=== PATIENT | female | born 1940 | race Hispanic/Latino ===

== ENCOUNTER 2019-01-07 17:16 | Emergency (ER) | payer OTHER ==
--- OUTSIDE RECORDS SUMMARY | 2019-01-07 17:17 | XMS REPORT ---
:1940 Author Organization eClinicalWorks Care Team Providers Name Role Phone Perez, Na Provider Role Unavailable Allergies, Adverse Reactions, Alerts Substance Reaction Event Type N.K.D.A. Info Not Available Non Drug Allergy Problems Problem Type Condition Code Onset Dates Condition Status Assessment HTN (hypertension) I10 Active Problem CHF (congestive heart failure) I50.9 Active Problem Obesity, unspecified E66.9 Active Problem Osteoarthritis, multiple sites M15.9 Active Problem Unsteady gait R26.81 Active Problem Hyperlipidemia E78.5 Active Problem HTN (hypertension) I10 Active Problem Gastroesophageal reflux disease K21.9 Active without esophagitis Problem Cardiac disease I51.9 Active Assessment Unsteady gait R26.81 Active Assessment Gastroesophageal reflux disease K21.9 Active without esophagitis Assessment Osteoarthritis, multiple sites M15.9 Active Assessment Microalbuminuria R80.9 Active Assessment CHF (congestive heart failure) I50.9 Active Assessment Renal insufficiency N28.9 Active Assessment Hyperlipidemia E78.5 Active Medications Medication Code Code Instructions Start End Status Dosage System Date Date [facility] 95814930892 81 MG Orally Active 1 tablet Once a day Tramadol HCl ND 59579501081 50 MG Orally Jan 13Jan Active 1 tablet as every 12 hrs 2017 28, needed 2017 Nitroglycerin [facility] 05031422316 0.4 MG Active not defined Sublingual Losartan [facility] 38694868654 100 MG Orally Active 1 tablet Potassium Once a day Diclofenac [facility] 08571974676 1 % Transdermal October 10, Active as directed Sodium twice a day 2018 Lyrica ND 24714114580 100 MG Orally Active 1 capsule Two times a day Simvastatin ND 24989100435 40 MG Orally Active 1 tablet in Once a day the evening Prilosec [facility] 28930045350 40 MG Orally Active 1 capsule Once a day Results No Known Results Summary Purpose eClinicalWorks Submission
--- OUTSIDE RECORDS SUMMARY | 2019-01-07 17:18 | XMS REPORT ---
:1940 Author Organization eClinicalWorks Care Team Providers Name Role Phone Perez, Na Provider Role Unavailable Allergies No Known Allergies Problems Problem Type Condition Code Onset Dates Condition Status Problem Hyperlipidemia E78.5 Active Problem Gastroesophageal reflux disease K21.9 Active without esophagitis Problem Cardiac disease I51.9 Active Problem CHF (congestive heart failure) I50.9 Active Problem HTN (hypertension) I10 Active Problem Stable angina I20.8 Active Problem BMI 30.0-30.9,adult Z68.30 Active Problem Constipation, unspecified K59.00 Active constipation type Problem Obesity, unspecified E66.9 Active Problem Osteoarthritis, multiple sites M15.9 Active Problem Allergic rhinitis due to pollen, J30.1 Active unspecified seasonality Problem Unsteady gait R26.81 Active Medications Medication Code Code Instructions Start End Status Dosage System Date Date Diclofenac [facility] 97222117766 3 % Transdermal November 02, Jan 01, Active 2 gram Sodium Twice a day 2018 2018 application to affected area Results No Known Results Summary Purpose eClinicalWorks Submission
--- OUTSIDE RECORDS SUMMARY | 2019-01-07 17:18 | XMS REPORT ---
[...] Start End Status Dosage System Date Date Lyrica [facility] 31004478461 100 MG Orally Active 1 capsule Two times a day Simvastatin ND 43916231969 40 MG Orally Active 1 tablet in Once a day the evening - [facility] 47519390715 81 MG Orally Active 1 tablet Once a day Carvedilol ND 89462078499 12.5 MG Orally Apr 15, Active as directed twice a day 2018 Nitroglycerin [facility] 86477065019 0.4 MG Active not defined Sublingual Losartan ND 27447481097 100 MG Orally Active 1 tablet Potassium Once a day Prilosec [facility] 37788653732 40 MG Orally Active 1 capsule Once a day Diclofenac [facility] 01338767041 1 % Transdermal Active as directed Sodium twice a day Tramadol HCl ND 48117234509 50 MG Orally Apr 15, Active 1 tablet as every 6 hrs 2018 needed Results No Known Results Summary Purpose eClinicalWorks Submission
--- OUTSIDE RECORDS SUMMARY | 2019-01-07 17:18 | XMS REPORT ---
:1940 Author Organization eClinicalWorks Care Team Providers Name Role Phone Perez, Na Provider Role Unavailable Allergies, Adverse Reactions, Alerts Substance Reaction Event Type N.K.D.A. Info Not Available Non Drug Allergy Problems Problem Type Condition Code Onset Dates Condition Status Problem CHF (congestive heart failure) I50.9 Active Problem Hyperlipidemia E78.5 Active Problem HTN (hypertension) I10 Active Problem Allergic rhinitis due to pollen, J30.1 Active unspecified seasonality Assessment Prediabetes R73.03 Active Problem Unsteady gait R26.81 Active Assessment Screening for diabetes mellitus Z13.1 Active Assessment BMI 30.0-30.9,adult Z68.30 Active Problem BMI 30.0-30.9,adult Z68.30 Active Problem Gastroesophageal reflux disease K21.9 Active without esophagitis Problem Cardiac disease I51.9 Active Problem Obesity, unspecified E66.9 Active Problem Osteoarthritis, multiple sites M15.9 Active Assessment Microalbuminuria R80.9 Active Assessment Gastroesophageal reflux disease K21.9 Active without esophagitis Assessment Allergic rhinitis due to pollen, J30.1 Active unspecified seasonality Assessment Unsteady gait R26.81 Active Assessment Hyperlipidemia E78.5 Active Assessment HTN (hypertension) I10 Active Assessment Osteoarthritis, multiple sites M15.9 Active Assessment Medicare annual wellness visit, Z00.00 Active subsequent Assessment CHF (congestive heart failure) I50.9 Active Medications Medication Code Code Instructions Start End Status Dosage System Date Date Prilosec [facility] 59406819284 40 Orally Once Active 1 capsule a day Prilosec [facility] 20389649419 40 MG Orally Active 1 capsule Once a day Nitroglycerin [facility] 27090484356 0.4 MG Active not defined Sublingual Loratadine [facility] 60457709525 10 MG Orally August Active 1 tablet Once a day 2018 Lyrica ND 11728354325 100 MG Orally Active 1 capsule Two times a day Losartan [facility] 95857461646 100 MG Orally Active 1 tablet Potassium Once a day Simvastatin [facility] 63208222856 40 MG Orally Active 1 tablet in Once a day the evening Tramadol HCl [facility] 00588219324 50 MG Orally Apr 15, Active 1 tablet as every 6 hrs 2017 needed Carvedilol [facility] 08966246132 12.5 MG Orally Apr 15, Active as directed twice a day 2017 Flonase [facility] 76363076399 50 MCG/ACT August Active 2 spray in Nasally Once a 2018 each day nostril Diclofenac [facility] 81653533420 1 % Transdermal Active as directed Sodium twice a day Aspir-81 [facility] 69268881180 81 MG Orally Active 1 tablet Once a day Results No Known Results Summary Purpose eClinicalWorks Submission
--- OUTSIDE RECORDS SUMMARY | 2019-01-07 17:18 | XMS REPORT ---
[...] esophagitis Problem Cardiac disease I51.9 Active Problem Stable angina I20.8 Active Assessment Renal insufficiency N28.9 Active Problem BMI 30.0-30.9,adult Z68.30 Active Assessment Microalbuminuria R80.9 Active Assessment Unsteady gait R26.81 Active Problem Constipation, unspecified K59.00 Active constipation type Problem Obesity, unspecified E66.9 Active Problem Osteoarthritis, multiple sites M15.9 Active Problem Allergic rhinitis due to pollen, J30.1 Active unspecified seasonality Problem Unsteady gait R26.81 Active Assessment Osteoarthritis, multiple sites M15.9 Active Assessment Stable angina I20.8 Active Assessment Gastroesophageal reflux disease K21.9 Active without esophagitis Assessment Constipation, unspecified K59.00 Active constipation type Assessment HTN (hypertension) I10 Active Assessment CHF (congestive heart failure) I50.9 Active Problem CHF (congestive heart failure) I50.9 Active Assessment Hyperlipidemia E78.5 Active Problem HTN (hypertension) I10 Active Medications Medication Code Code Instructions Start End Status Dosage System Date Date Lyrica [facility] 01685571253 100 MG Orally Active 1 capsule Two times a day Diclofenac [facility] 54470697692 1 % Transdermal Active as directed Sodium twice a day Nitroglycerin ND 62023659341 0.4 MG Active not defined Sublingual Amitiza [facility] 17597079265 24 MCG Orally November 02Jan Active 1 capsule Twice a day 2018 16, with food 2018 Carvedilol ND 14010140256 12.5 MG Orally Apr 15, Active as directed twice a day 2017 Prilosec [facility] 60473413253 40 MG Orally Active 1 capsule Once a day Simvastatin ND 10944014235 40 MG Orally Active 1 tablet in Once a day the evening Nitrostat [facility] 81668657218 0.4 MG November 02, Active 1 tablet Sublingual as 2018 needed once a day for angina Aspir-81 [facility] 92764403233 81 MG Orally Active 1 tablet Once a day Tramadol HCl [facility] 86371048316 50 MG Orally Apr 15, Active 1 tablet as every 6 hrs 2017 needed Prilosec [facility] 65726479899 40 Orally Once Active 1 capsule a day Loratadine [facility] 05761012833 10 MG Orally August Active 1 tablet Once a day 2018 Flonase [facility] 64207442455 50 MCG/ACT August Active 2 spray in Nasally Once a 2018 each day nostril Ranitidine HCl [facility] 34218701183 150 MG Orally November 02, Active 1 tablet as Twice a day 2018 needed Losartan [facility] 44223623286 100 MG Orally Active 1 tablet Potassium Once a day Results No Known Results Summary Purpose eClinicalWorks Submission
--- OUTSIDE RECORDS SUMMARY | 2019-01-07 17:18 | XMS REPORT ---
[...] seasonality Problem Unsteady gait R26.81 Active Medications No Known Medications Results No Known Results Summary Purpose eClinicalWorks Submission
[2019-01-07] MEDS ORDERED: LIDOCAINE 1% 20 ML MDV ONE (17:37)
[2019-01-07] MEDS ORDERED: LIDOCAINE 2% W/EPI 1:200,000 MPF 20 ML VIAL IM ONE (17:38)
[2019-01-07] MEDS ORDERED: LIDOCAINE 1% W/EPI 1:100,000 MDV 20 ML VIAL IV ONE (18:00)
[2019-01-07] MEDS ORDERED: CEPHALEXIN 250 MG CAP ONE (18:06)
--- NOTE | 2019-01-07 18:13 | ER ---
Nurse's Notes [facility] Name: Gale Waters Age: 78 yrs Sex: Female : 1940 Arrival Date: 01/07/2019 Time: 17:20 Bed 23 Private MD: Diagnosis: Fall due to bumping against object;Laceration without foreign body of other part of head-scalp Presentation: 01/07 17:20 Transition of care: patient was not received from another setting of care. Onset of ss symptoms was January 07, 2019. Risk Assessment: Do you want to hurt yourself or someone else? Patient reports no desire to harm self or others. Initial Sepsis Screen: Does the patient meet any 2 criteria? No. Patient's initial sepsis screen is negative. Does the patient have a suspected source of infection? No. Patient's initial sepsis screen is negative. 17:23 Presenting complaint: EMS states: laceration sustained to back of head after shower ss chair gave out from under patient 30 minutes ago. EMS noted bleeding laceration and applied pressure dressing. Bleeding controlled at this time. Care prior to arrival: Pressure dressing applied to head. Mechanism of Injury: Fall sitting position. Trauma event details: Injury occurred in the [facility], Injury occurred: at home. Injury occurred: January 07, 2019. 17:23 Acuity: ADÁN 2 17:23 Method Of Arrival: EMS: [facility] Triage Assessment: 18:15 General: Appears. mg2 19:13 General: Behavior is calm, cooperative. mg2 Trauma Activation: Alert Physician: ED Physician; Name: ; Notified At: ; Arrived At: Physician: General Surgeon; Name: ; Notified At: ; Arrived At: Physician: Radiology; Name: ; Notified At: ; Arrived At: Physician: Respiratory; Name: ; Notified At: ; Arrived At: Physician: Lab; Name: ; Notified At: ; Arrived At: Historical: - Allergies: 17:32 No Known Allergies; ss - Home Meds: 18:14 carvedilol 12.5 mg oral tab [Active]; omeprazole 40 mg Oral cpDR [Active]; losartan 100 mg2 mg oral tab 1 tab once daily [Active]; aspirin 81 mg Oral TbEC 1 tab once daily [Active]; ranitidine HCl 150 mg Oral cap [Active]; simvastatin 40 mg Oral tab [Active]; Lyrica Oral [Active]; Amitiza 24 mcg oral cap [Active]; - PMHx: 17:32 High Cholesterol; Hypertension; Myocardial infarction; ss - PSHx: 17:32 Heart stents; ss - Immunization history:: Adult Immunizations up to date, Last tetanus immunization: unknown. - Social history:: Smoking status: Patient/guardian denies using tobacco. - Ebola Screening: : Patient denies exposure to infectious person Patient denies travel to an Ebola-affected area in the 21 days before illness onset. Screenin:20 Abuse screen: Denies threats or abuse. Denies injuries from another. Tuberculosis ss screening: Never had TB. 18:11 Nutritional screening: No deficits noted. Fall Risk Fall in past 12 months (25 points). mg2 IV access (20 points). Primary Survey: 17:14 NO uncontrolled hemorrhage observed. A: The patient is alert. Airway: patent, No ss supplemental oxygen in use on arrival. Oral cavity: clear, Trachea midline. Breathing/Chest: Respiratory pattern: regular, Respiratory effort: spontaneous, unlabored, Breath sounds: clear, bilaterally. Circulation: Pulses: palpable right radial artery, right posterior tibial artery, left radial artery and left posterior tibial artery. Skin color: pink, Skin temperature: warm. Disability Alert. Exposure/Environment: There is no evidence of uncontrolled external bleeding. Obvious injury(ies) are noted at this time: laceration to back of head. Bleeding controlled by pressure dressing placed by EMS prior to arrival. Patient is awake, alert and smiling during triage. 18:30 Reassessment Airway Airway Patent Breathing/Chest Respiratory pattern Regular mg2 Respiratory effort Spontaneous Unlabored Circulation Color [place] Disability Alert. Secondary Survey: 18:10 HEENT: Head Other laceration in the scalp. Gastrointestinal: No deficits noted. : No mg2 deficits noted. Musculoskeletal: Circulation, motion, and sensation intact. Capillary refill < 3 seconds. Injury Description: Laceration sustained to scalp is clean, 2.6 to 7.5 cm long, bleeding moderately. Assessment: 18:08 Pain: Complains of pain in scalp Pain does not radiate. Pain currently is 2 out of 10 mg2 on a pain scale. Quality of pain is described as aching, Pain began suddenly, Is intermittent. Neuro: Level of Consciousness is awake, alert, obeys commands, Oriented to person, place, time, situation. EENT: No signs and/or symptoms were reported regarding the EENT system. Cardiovascular: Capillary refill < 3 seconds Patient's skin is warm and dry. Respiratory: Airway is patent Respiratory effort is even, unlabored, Respiratory pattern is regular, symmetrical. GI: No signs and/or symptoms were reported involving the gastrointestinal system. : No signs and/or symptoms were reported regarding the genitourinary system. Derm: Skin is pink, warm \T\ dry. normal, Wound noted scalp. Musculoskeletal: Circulation, motion, and sensation intact. Capillary refill < 3 seconds. Injury Description: Laceration sustained to scalp is clean, 2.6 to 7.5 cm long, bleeding moderately, was sustained 1-2 hours ago. moderate bleeding noted at this time. 18:31 Reassessment: patient up for discharge once ct report comes back normal . mg2 Vital Signs: 17:20 Pulse 89; Resp 16; Temp 99.0(O); Pulse Ox 98% on R/A; Weight 68.04 kg; Height 4 ft. 11 ss in. (149.86 cm); Pain 10/10; 18:28 BP 174 / 71; Pulse 78; Resp 18; Pulse Ox 100% on R/A; mg2 18:58 BP 119 / 57; Pulse 73; Resp 18; Temp 98; Pulse Ox 99% on R/A; mg2 17:20 Body Mass Index 30.30 (68.04 kg, 149.86 cm) ss [place] Coma Score: 17:20 Eye Response: spontaneous(4). Verbal Response: oriented(5). Motor Response: obeys ss commands(6). Total: 15. 19:12 Eye Response: spontaneous(4). Verbal Response: oriented(5). Motor Response: obeys mg2 commands(6). Total: 15. Trauma Score (Adult): 17:20 Eye Response: spontaneous(1); Verbal Response: oriented(1); Motor Response: obeys ss commands(2); Systolic BP: > 89 mm Hg(4); Respiratory Rate: 10 to 29 per min(4); [place] Score: 15; Trauma Score: 12 19:12 Eye Response: spontaneous(1); Verbal Response: oriented(1); Motor Response: obeys mg2 commands(2); Systolic BP: > 89 mm Hg(4); Respiratory Rate: 10 to 29 per min(4); [place] Score: 15; Trauma Score: 12 ED Course: 17:20 Patient arrived in ED. 17:20 John Cary MD is Attending Physician. [facility] 17:20 Patient has correct armband on for positive identification. Placed in gown. Bed in low ss position. Call light in reach. Side rails up X 1. nurse monitoring on. Pulse ox on. NIBP on. 17:20 Patient maintains SpO2 saturation greater than 95% on room air. ss 17:28 Triage completed. ss 17:32 Arm band placed on right wrist. ss 17:33 Omega Hurtado, RAPHAEL is Primary Nurse. mg2 18:14 CT Head C Spine In Process Unspecified. EDMS 18:14 Wound care: to laceration located on scalp was irrigated with normal saline, Patient mg2 tolerated well. 5 stitches and [address] cary under local anesthesia. Thermoregulation: warm blanket given to patient. 18:15 Assist provider with laceration repair. Inserted saline lock: 20 gauge in right mg2 forearm, using aseptic technique. by RAPHAEL Garcia. 19:12 IV discontinued, intact, bleeding controlled, No redness/swelling at site. Pressure mg2 dressing applied. Administered Medications: 17:55 Drug: Lidocaine-Epinephrine -1%: (1:100,000) 10 ml {Note: given by the provider. .} mg2 Volume: 20 ml; Route: Infiltration; 17:55 Follow up: Response: No adverse reaction mg2 18:26 Drug: KeFLEX 500 mg Route: PO; mg2 18:27 Follow up: Response: No adverse reaction mg2 Intake: 18:11 PO: 0ml; Total: 0ml. mg2 Outcome: 18:09 Discharge ordered by . josy 19:13 Discharged to home via wheelchair, with family. mg2 19:13 Condition: stable 19:13 Discharge instructions given to patient, family, Instructed on discharge instructions, follow up and referral plans. medication usage, Demonstrated understanding of instructions, follow-up care, medications, wound care, Prescriptions given X 1. 19:13 Patient's length of stay was not longer than 2 hours. 19:18 Patient left the ED. mg2 Signatures: Dispatcher [employer] EDCA John Cary MD MD cha Smirch, Shelby, RN RN Omega Hurtado, RAPHAEL RN mg2 Corrections: (The following items were deleted from the chart) 18:29 18:14 Wound care: to laceration located on scalp was irrigated with normal saline, mg2 Patient tolerated well. sutured by Dr cary under local anesthesia. mg2
--- NOTE | 2019-01-07 18:14 | EDPHYS ---
Physician Documentation [facility] Name: Gale Waters Age: 78 yrs Sex: Female : 1940 Arrival Date: 01/07/2019 Time: 17:20 Bed 23 Private MD: ED Physician John Cary HPI: 01/07 18:03 This 78 yrs old Female presents to ER via EMS with complaints of Fall Injury, josy Laceration To Head. 18:03 Details of fall: The patient fell from an upright position, while standing, while josy walking. Onset: The symptoms/episode began/occurred just prior to arrival. Associated injuries: The patient sustained injury to the head. Severity of symptoms: At their worst the symptoms were mild, in the emergency department the symptoms are unchanged. The patient has not experienced similar symptoms in the past. Historical: - Allergies: 17:32 No Known Allergies; ss - Home Meds: 18:14 carvedilol 12.5 mg oral tab [Active]; omeprazole 40 mg Oral cpDR [Active]; losartan 100 mg2 mg oral tab 1 tab once daily [Active]; aspirin 81 mg Oral TbEC 1 tab once daily [Active]; ranitidine HCl 150 mg Oral cap [Active]; simvastatin 40 mg Oral tab [Active]; Lyrica Oral [Active]; Amitiza 24 mcg oral cap [Active]; - PMHx: 17:32 High Cholesterol; Hypertension; Myocardial infarction; ss - PSHx: 17:32 Heart stents; ss - Immunization history:: Adult Immunizations up to date, Last tetanus immunization: unknown. - Social history:: Smoking status: Patient/guardian denies using tobacco. - Ebola Screening: : Patient denies exposure to infectious person Patient denies travel to an Ebola-affected area in the 21 days before illness onset. ROS: 18:04 Constitutional: Negative for fever, chills, and weight loss, Eyes: Negative for injury, josy pain, redness, and discharge, ENT: Negative for injury, pain, and discharge, Neck: Negative for injury, pain, and swelling, Cardiovascular: Negative for chest pain, palpitations, and edema, Respiratory: Negative for shortness of breath, cough, wheezing, and pleuritic chest pain, Abdomen/GI: Negative for abdominal pain, nausea, vomiting, diarrhea, and constipation, Back: Negative for injury and pain, : Negative for injury, bleeding, discharge, and swelling, MS/Extremity: Negative for injury and deformity, Skin: Negative for injury, rash, and discoloration, Neuro: Negative for headache, weakness, numbness, tingling, and seizure, Psych: Negative for depression, anxiety, suicide ideation, homicidal ideation, and hallucinations, Allergy/Immunology: Negative for hives, rash, and allergies, Endocrine: Negative for neck swelling, polydipsia, polyuria, polyphagia, and marked weight changes, Hematologic/Lymphatic: Negative for swollen nodes, abnormal bleeding, and unusual bruising. Exam: 18:05 Constitutional: This is a well developed, well nourished patient who is awake, alert, josy and in no acute distress. Head/Face: Normocephalic, atraumatic. Eyes: Pupils equal round and reactive to light, extra-ocular motions intact. Lids and lashes normal. Conjunctiva and sclera are non-icteric and not injected. Cornea within normal limits. Periorbital areas with no swelling, redness, or edema. ENT: Nares patent. No nasal discharge, no septal abnormalities noted. Tympanic membranes are normal and external auditory canals are clear. Oropharynx with no redness, swelling, or masses, exudates, or evidence of obstruction, uvula midline. Mucous membranes moist. Neck: Trachea midline, no thyromegaly or masses palpated, and no cervical lymphadenopathy. Supple, full range of motion without nuchal rigidity, or vertebral point tenderness. No Meningismus. Chest/axilla: Normal chest wall appearance and motion. Nontender with no deformity. No lesions are appreciated. Cardiovascular: Regular rate and rhythm with a normal S1 and S2. No gallops, murmurs, or rubs. Normal PMI, no JVD. No pulse deficits. Respiratory: Lungs have equal breath sounds bilaterally, clear to auscultation and percussion. No rales, rhonchi or wheezes noted. No increased work of breathing, no retractions or nasal flaring. Abdomen/GI: Soft, non-tender, with normal bowel sounds. No distension or tympany. No guarding or rebound. No evidence of tenderness throughout. Back: No spinal tenderness. No costovertebral tenderness. Full range of motion. MS/ Extremity: Pulses equal, no cyanosis. Neurovascular intact. Full, normal range of motion. Neuro: Awake and alert, GCS 15, oriented to person, place, time, and situation. Cranial nerves II-XII grossly intact. Motor strength 5/5 in all extremities. Sensory grossly intact. Cerebellar exam normal. Normal gait. Psych: Awake, alert, with orientation to person, place and time. Behavior, mood, and affect are within normal limits. 18:05 Skin: injury, laceration(s), the wound is approximately 3.5 cm(s), with a depth of .25 cm(s), of the scalp. Vital Signs: 17:20 Pulse 89; Resp 16; Temp 99.0(O); Pulse Ox 98% on R/A; Weight 68.04 kg; Height 4 ft. 11 ss in. (149.86 cm); Pain 10/10; 18:28 BP 174 / 71; Pulse 78; Resp 18; Pulse Ox 100% on R/A; mg2 18:58 BP 119 / 57; Pulse 73; Resp 18; Temp 98; Pulse Ox 99% on R/A; mg2 17:20 Body Mass Index 30.30 (68.04 kg, 149.86 cm) ss Nely Coma Score: 17:20 Eye Response: spontaneous(4). Verbal Response: oriented(5). Motor Response: obeys ss commands(6). Total: 15. 19:12 Eye Response: spontaneous(4). Verbal Response: oriented(5). Motor Response: obeys mg2 commands(6). Total: 15. Trauma Score (Adult): 17:20 Eye Response: spontaneous(1); Verbal Response: oriented(1); Motor Response: obeys ss commands(2); Systolic BP: > 89 mm Hg(4); Respiratory Rate: 10 to 29 per min(4); Nely Score: 15; Trauma Score: 12 19:12 Eye Response: spontaneous(1); Verbal Response: oriented(1); Motor Response: obeys mg2 commands(2); Systolic BP: > 89 mm Hg(4); Respiratory Rate: 10 to 29 per min(4); Nely Score: 15; Trauma Score: 12 Laceration: 18:05 Wound Repair of 3.5cm ( 1.4in ) subcutaneous laceration to scalp. Linear shaped.. josy Minimal bleeding noted.. Distal neuro/vascular/tendon intact. Anesthesia: Local anesthetic administered with 10 mls of 2% lidocaine. Wound prep: Moderate cleansing by me, Wound explored. Skin closed with 5 3-0 Prolene using interrupted sutures and sterile technique. Dressed with pressure dressing, non-adherent dressing. Patient tolerated well. MDM: 17:20 Patient medically screened. [facility] 18:07 Data reviewed: vital signs, nurses notes, radiologic studies, CT scan. [facility] 01/07 17:22 Order name: CT Head C Spine 01/07 17:30 Order name: Dressing - Wound; Complete Time: 17:33 [facility] 01/07 17:30 Order name: Gloves, Sterile; Complete Time: 17:33 [facility] 01/07 17:30 Order name: Setup Suture Tray; Complete Time: 17:33 [facility] Administered Medications: 17:55 Drug: Lidocaine-Epinephrine -1%: (1:100,000) 10 ml {Note: given by the provider. .} mg2 Volume: 20 ml; Route: Infiltration; 17:55 Follow up: Response: No adverse reaction mg2 18:26 Drug: KeFLEX 500 mg Route: PO; mg2 18:27 Follow up: Response: No adverse reaction mg2 Disposition: 01/07/19 18:09 Discharged to Home. Impression: Fall due to bumping against object, Laceration without foreign body of other part of head - scalp. - Condition is Stable. - Discharge Instructions: Head Injury, Adult, Facial Laceration, Facial Laceration, [id number], Head Injury, Adult, [id number]. - Prescriptions for Keflex 500 mg Oral Capsule - take 1 capsule by ORAL route every 6 hours for 7 days; 28 capsule. - Medication Reconciliation Form, Thank You Letter, Antibiotic Education, Prescription Opioid Use form. - Follow up: Private Physician; When: 2 - 3 days; Reason: Recheck today's complaints, Continuance of care, Re-evaluation by your physician. - Problem is new. - Symptoms have improved. Signatures: Dispatcher [employer] EDMS John Cary MD MD cha Smirch, Shelby, RN RN Omega Hurtado RN RN mg2 Corrections: (The following items were deleted from the chart) 19:18 18:09 01/07/2019 18:09 Discharged to Home. Impression: Fall due to bumping against mg2 object; Laceration without foreign body of other part of head - scalp. Condition is Stable. Forms are Medication Reconciliation Form, Thank You Letter, Antibiotic Education, Prescription Opioid Use. Follow up: Private Physician; When: 2 - 3 days; Reason: Recheck today's complaints, Continuance of care, Re-evaluation by your physician. Problem is new. Symptoms have improved. josy
--- NOTE | 2019-01-07 18:39 | RAD REPORT ---
EXAM DESCRIPTION: CT - [id number] - 01/07/2019 6:12 pm CLINICAL HISTORY: Fall, head and neck injury COMPARISON: CT trauma study July 2015. TECHNIQUE: Axial 5 mm thick images of the head were obtained. Axial 2 mm thick images of the cervic al spine were obtained with sagittal and coronal reconstruction images generated and reviewed. All CT scans are performed using dose optimization technique as appropriate and may include automated exposure control or mA/KV adjustment according to patient size. FINDINGS: No intracranial hemorrhage, mass, edema or acute intracranial finding. No acute cortical b ased infarction. No cortical edema or sulcal effacement. No significant atrophy or chronic ischemic c hange. No extra-axial fluid collections. Mastoid air cells and paranasal sinuses are clear. No globe or orbit abnormality seen. Small right parietal scalp hematoma. Skin jae are in place from lacera tion repair. No foreign body. Cervical body height and alignment are normal. Mild C6-7 disc space narrowing present. Facet joint de generative change present at multiple levels. Left foraminal encroachment C3-4 with bilateral foramin al encroachment at C4-5. No fracture or acute bony abnormality. Central canal detail is inherently li mited. No paraspinal mass or hematoma. IMPRESSION: No hemorrhage, edema or acute intracranial finding. Small scalp hematoma associated with the right parietal scalp laceration. No foreign body. Cervical spine degenerative change with no acute finding.
== END 2019-01-07 19:18 | disposition home or self-care (01) ==
LOC: ER 17:16
PROC: 0JQ00ZZ Repair Scalp Subcutaneous Tissue and Fascia, Open Approach (ICD-10-PCS; principal; 2019-01-07)
DX: S01.81XA Laceration without foreign body of other part of head, initial encounter (principal); W17.89XA Other fall from one level to another, initial encounter; Y93.9 Activity, unspecified; Y92.002 Bathroom of unspecified non-institutional (private) residence as the place of occurrence of the external cause
CPT/HCPCS: 70450; 72125; 99285

== ENCOUNTER 2019-06-23 03:22 | Emergency (ER) | payer OTHER ==
--- OUTSIDE RECORDS SUMMARY | 2019-06-23 03:25 | XMS REPORT ---
:1940 Author Organization [employer] Care Team Providers Name Role Phone Perez, Na Provider Role Unavailable Allergies No Known Allergies Problems Problem Type Condition Code Onset Dates Condition Status Problem Hyperlipidemia E78.5 Active Problem Gastroesophageal reflux disease K21.9 Active without esophagitis Problem Cardiac disease I51.9 Active Problem Stable angina I20.8 Active Problem BMI 30.0-30.9,adult Z68.30 Active Problem Constipation, unspecified K59.00 Active constipation type Problem Obesity, unspecified E66.9 Active Problem Osteoarthritis, multiple sites M15.9 Active Problem Allergic rhinitis due to pollen, J30.1 Active unspecified seasonality Problem Unsteady gait R26.81 Active Assessment CHF (congestive heart failure) I50.9 Active Problem CHF (congestive heart failure) I50.9 Active Assessment HTN (hypertension) I10 Active Problem HTN (hypertension) I10 Active Medications No Known Medications Results No Known Results Summary Purpose [employer] Submission
--- OUTSIDE RECORDS SUMMARY | 2019-06-23 03:25 | XMS REPORT ---
[...] seasonality Problem Unsteady gait R26.81 Active Assessment Allergic rhinitis due to pollen, J30.1 Active unspecified seasonality Assessment Gastroesophageal reflux disease K21.9 Active without esophagitis Assessment Osteoarthritis, multiple sites M15.9 Active Assessment Hyperlipidemia E78.5 Active Problem CHF (congestive heart failure) I50.9 Active Assessment HTN (hypertension) I10 Active Problem HTN (hypertension) I10 Active Medications Medication Code Code Instructions Start End Date Status Dosage System Date Losartan [facility] 18631810548 100 MG Orally Active 1 tablet Potassium Once a day Diclofenac [facility] 66723013247 1 % Transdermal July Active as directed Sodium twice a day [address] [facility] 19351859458 50 MCG/ACT August Active 2 spray in Nasally Once a 2018 each day nostril Prilosec [facility] 89676578424 40 MG Orally Active 1 capsule Once a day Carvedilol ND 10809379675 12.5 MG Orally Active as directed twice a day Lyrica ND 70995521666 100 MG Orally Active 1 capsule Two times a day Ranitidine HCl [facility] 49129976506 150 MG Orally Active 1 tablet as Once a day at needed bedtime Amitiza [facility] 54767073701 24 MCG Orally July Active 1 capsule Twice a day 2019 with food Simvastatin ND 80269497567 40 MG Orally Active 1 tablet in Once a day the evening Results No Known Results Summary Purpose [employer]ClinicalWorks Submission
--- OUTSIDE RECORDS SUMMARY | 2019-06-23 03:25 | XMS REPORT ---
[...] seasonality Problem Unsteady gait R26.81 Active Assessment Hyperlipidemia E78.5 Active Assessment HTN (hypertension) I10 Active Assessment Gastroesophageal reflux disease K21.9 Active without esophagitis Problem CHF (congestive heart failure) I50.9 Active Assessment CHF (congestive heart failure) I50.9 Active Problem HTN (hypertension) I10 Active Medications No Known Medications Results No Known Results Summary Purpose [employer]ClinicalWorks Submission
--- OUTSIDE RECORDS SUMMARY | 2019-06-23 03:25 | XMS REPORT ---
[...] seasonality Problem Unsteady gait R26.81 Active Assessment Stable angina I20.8 Active Assessment Osteoarthritis, multiple sites M15.9 Active Assessment Gastroesophageal reflux disease K21.9 Active without esophagitis Assessment Constipation, unspecified K59.00 Active constipation type Assessment HTN (hypertension) I10 Active Assessment CHF (congestive heart failure) I50.9 Active Problem CHF (congestive heart failure) I50.9 Active Assessment Hyperlipidemia E78.5 Active Problem HTN (hypertension) I10 Active Medications Medication Code Code Instructions Start End Date Status Dosage System Date Prilosec [facility] 25040598798 40 MG Orally Active 1 capsule Once a day Nitroglycerin [facility] 54286415328 0.4 MG Active not Sublingual defined Amitiza [facility] 25191088524 24 MCG Orally May 25, November 20, Active 1 capsule Twice a day 2019 2019 with food and water Lyrica [facility] 06909751838 100 MG Orally Active 1 capsule Two times a day Nitrostat [facility] 54605836334 0.4 MG Active 1 tablet Sublingual as needed once a day for angina Carvedilol [facility] 62293465894 12.5 MG Orally Active as twice a day directed Flonase NDC 54773833208 50 MCG/ACT August Active 2 spray in Nasally Once a 2018 each day nostril Amitiza [facility] 95862293285 24 MCG Orally July Active 1 capsule Twice a day 2019 with food Prilosec [facility] 67164184987 40 Orally Once Active 1 capsule a day Tramadol HCl [facility] 61975382385 50 MG Orally Apr 15, Active 1 tablet every 6 hrs 2017 as needed Diclofenac [facility] 67461093064 3 % Externally Feb 18, Active as Sodium twice a day 2019 directed Simvastatin [facility] 18039298941 40 MG Orally Active 1 tablet Once a day in the evening Losartan [facility] 24792609170 100 MG Orally Active 1 tablet Potassium Once a day Aspir-81 [facility] 04983817320 81 MG Orally Active 1 tablet Once a day Ranitidine HCl [facility] 30318163703 150 MG Orally Active 1 tablet Once a day at as needed bedtime Results No Known Results Summary Purpose [employer]ClinicalWorks Submission
[2019-06-23] MEDS ORDERED: LIDOCAINE 1% MPF 5 ML VIAL ONE (03:59)
[2019-06-23] MEDS ORDERED: ACETAMINOPHEN 500 MG TAB ONE (04:15)
[2019-06-23] MEDS ORDERED: TETANUS & DIPHTHERIA TOX,ADULT 0.5 ML VIAL ONE (04:22)
--- NOTE | 2019-06-23 09:51 | RAD REPORT ---
EXAM DESCRIPTION: CT - Head Brain Wo Cont - 06/23/2019 6:09 am CLINICAL HISTORY: FALL COMPARISON: None. TECHNIQUE: Axial unenhanced CT imaging of the brain. Reformatted coronal and sagittal images obtaine d. This examination was performed according to our departmental dose optimization program, which include s automated exposure control, adjustment of the mA and/or kV according to patient size and/or use of iterative reconstruction technique. FINDINGS: There is bilateral anterior frontal scalp edema, right greater than left, compatible with small soft tissue hematomas. There is no acute fracture within the imaged facial bones, calvarium, or skull base. There is mucosal thickening within the ethmoid air cells. Mastoid air cells are clear bi laterally There is no intraparenchymal or extra-axial hemorrhage. No mass or midline shift. No edema. There is slight decreased white matter attenuation due to chronic vascular ischemic change. Normal cerebellum and vermis. Fourth ventricle is midline. Prepontine cisterns are not effaced. Yadira l sella contents. IMPRESSION: 1. Anterior bifrontal scalp hematomas. No intracranial bleed or skull fracture. 2. Mild senescent brain changes. 2. Mild mucosal sinus disease. Electronically signed by: Mariela Estes DO 06/23/2019 4:07 AM [employer] Due to temporary technical issues with the PACS/Fluency reporting system, reports are being signed by the in house radiologist as a courtesy to ensure prompt reporting. The interpreting radiologist is f ully responsible for the content of the report.
--- NOTE | 2019-06-23 09:55 | EDPHYS ---
Physician Documentation [facility] Name: Gale Waters Age: 79 yrs Sex: Female : 1940 Arrival Date: 06/23/2019 Time: 03:26 Bed 7 Private MD: ED Physician Ciaran Hoskins HPI: 06/23 04:10 This 79 yrs old Female presents to ER via Wheelchair with complaints of tw4 Laceration To Head, Fall Injury. 04:10 The patient has a laceration related to:. The laceration(s) is(are) located on the top tw4 of head. Onset: The symptoms/episode began/occurred today. Associated signs and symptoms: The patient has no apparent associated signs or symptoms. The patient has not experienced similar symptoms in the past. Historical: - Home Meds: 03:38 Amitiza 24 mcg Oral cap [Active]; aspirin 81 mg Oral TbEC 1 tab once daily [Active]; tl1 losartan 100 mg Oral tab 1 tab once daily [Active]; carvedilol 12.5 mg Oral tab [Active]; Lyrica Oral [Active]; omeprazole 40 mg Oral cpDR [Active]; ranitidine HCl 150 mg Oral cap [Active]; simvastatin 40 mg Oral tab [Active]; - PMHx: 03:38 High Cholesterol; Hypertension; Myocardial infarction; tl1 - Immunization history:: Adult Immunizations not up to date. - Coronavirus screen:: The patient has NOT traveled to [place], [place], or [place] in the past 14 days. - Immunization history: Last tetanus immunization: unknown. - Social history:: Smoking status: Patient/guardian denies using. - Ebola Screening: : Patient negative for fever greater than or equal to 101.5 degrees Fahrenheit, and additional compatible Ebola Virus Disease symptoms Patient denies exposure to infectious person. ROS: 04:10 Constitutional: Negative for fever, chills, and weight loss, Eyes: Negative for injury, tw4 pain, redness, and discharge, Cardiovascular: Negative for chest pain, palpitations, and edema, Respiratory: Negative for shortness of breath, cough, wheezing, and pleuritic chest pain, Abdomen/GI: Negative for abdominal pain, nausea, vomiting, diarrhea, and constipation, Back: Negative for injury and pain, MS/Extremity: Negative for injury and deformity, Skin: Negative for injury, rash, and discoloration, Neuro: Negative for headache, weakness, numbness, tingling, and seizure. Exam: 04:10 Chest/axilla: Normal chest wall appearance and motion. Nontender with no deformity. tw4 No lesions are appreciated. Cardiovascular: Regular rate and rhythm with a normal S1 and S2. No gallops, murmurs, or rubs. Normal PMI, no JVD. No pulse deficits. Respiratory: Lungs have equal breath sounds bilaterally, clear to auscultation and percussion. No rales, rhonchi or wheezes noted. No increased work of breathing, no retractions or nasal flaring. Abdomen/GI: Soft, non-tender, with normal bowel sounds. No distension or tympany. No guarding or rebound. No evidence of tenderness throughout. Back: No spinal tenderness. No costovertebral tenderness. Full range of motion. MS/ Extremity: Pulses equal, no cyanosis. Neurovascular intact. Full, normal range of motion. Neuro: Awake and alert, GCS 15, oriented to person, place, time, and situation. Cranial nerves II-XII grossly intact. Motor strength 5/5 in all extremities. Sensory grossly intact. Cerebellar exam normal. Normal gait. 04:10 Head/face: Noted is a laceration(s), that is superficial, 12 cm(s), of the top of head. Vital Signs: 03:39 BP 163 / 63; Pulse 79; Resp 18; Temp 97.8(O); Pulse Ox 97% on R/A; Weight 68.04 kg; tl1 Height 4 ft. 11 in. (149.86 cm); Pain 4/10; 04:45 BP 135 / 62; Pulse 64; Resp 18; Pulse Ox 95% on R/A; wh 03:39 Body Mass Index 30.30 (68.04 kg, 149.86 cm) tl1 [place] Coma Score: 04:08 Eye Response: spontaneous(4). Verbal Response: oriented(5). Motor Response: obeys tl1 commands(6). Total: 15. 04:41 Eye Response: spontaneous(4). Verbal Response: oriented(5). Motor Response: obeys commands(6). Total: 15. Trauma Score (Adult): 04:08 Eye Response: spontaneous(1); Verbal Response: oriented(1); Motor Response: obeys tl1 commands(2); Systolic BP: > 89 mm Hg(4); Respiratory Rate: 10 to 29 per min(4); Nely Score: 15; Trauma Score: 12 04:41 Eye Response: spontaneous(1); Verbal Response: oriented(1); Motor Response: obeys wh commands(2); Systolic BP: > 89 mm Hg(4); Respiratory Rate: 10 to 29 per min(4); [place] Score: 15; Trauma Score: 12 Laceration: 04:07 Wound Repair of 12.7cm ( 5in ) subcutaneous laceration to top of head. Distal tw4 neuro/vascular/tendon intact. Anesthesia: Digital block administered with 5 mls of 1% lidocaine. Wound prep: Simple cleansing by nurse. Skin closed with 6 1-0 [place] using simple sutures and sterile technique. Dressed with Bacitracin. Patient tolerated well. MDM: 03:30 Patient medically screened. tw4 04:07 Data reviewed: vital signs, nurses notes. Counseling: I had a detailed discussion with tw4 the patient and/or guardian regarding: the historical points, exam findings, and any diagnostic results supporting the discharge/admit diagnosis. 04:10 Differential diagnosis: superficial laceration, tendon injury. Data interpreted: Pulse tw4 oximetry: Interpretation: normal. 04:40 Data reviewed: radiologic studies, CT scan. Medication response: Response to treatment: tw4 the patient's symptoms have markedly improved after treatment, and as a result, I will discharge patient. Special discussion: Based on the patient's history, exam and DX evaluation, there is no indication for emergent intervention or inpatient TX. It is understood by the patient/guardian that if the SXs persist or worsen they need to return immediately for re-evaluation. I discussed with the patient/guardian in detail that at this point there is no indication for admission to the hospital. It is understood, however, that if the symptoms persist or worsen the patient needs to return immediately for re-evaluation. ED course: CT scan of the head negative for ICH or other abnormality. Pt awake and oriented times three upon discharge. 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 Exp: 04/15/2021. Lot #: [id number]. } Route: IM; Site: right deltoid; 04:59 Follow up: Response: No adverse reaction Disposition: 06/23/19 04:45 Discharged to Home. Impression: Laceration without foreign body of scalp, Concussion without loss of consciousness, Contusion of unspecified part of head. - Condition is Stable. - Discharge Instructions: Contusion, Head Injury, Adult, [id number]. - Family Work Release, Medication Reconciliation Form, Thank You Letter, Antibiotic Education, Prescription Opioid Use form. - Follow up: Private Physician; When: Upon discharge from the Emergency Department; Reason: Recheck today's complaints, Continuance of care, Re-evaluation by your physician. - Problem is new. - Symptoms have improved. Signatures: Betsy Gonzalez, RN RN tl1 [facility], MD MD tw4 Corrections: (The following items were deleted from the chart) 05:00 04:45 06/23/2019 04:45 Discharged to Home. Impression: Laceration without foreign body wh of scalp; Concussion without loss of consciousness; Contusion of unspecified part of head. Condition is Stable. Forms are Medication Reconciliation Form, Thank You Letter, Antibiotic Education, Prescription Opioid Use. Follow up: Private Physician; When: Upon discharge from the Emergency Department; Reason: Recheck today's complaints, Continuance of care, Re-evaluation by your physician. Problem is new. Symptoms have improved. tw4
--- NOTE | 2019-06-23 09:56 | ER ---
Nurse's Notes [facility] Name: Gale Waters Age: 79 yrs Sex: Female : 1940 Arrival Date: 06/23/2019 Time: 03:26 Bed 7 Private MD: Diagnosis: Laceration without foreign body of scalp;Concussion without loss of consciousness;Contusion of unspecified part of head Presentation: 06/23 03:34 Presenting complaint: Child states: She got up to go to the bathroom and tripped over tl1 the door jam and struck her head on the edge of the shower. Denies LOC. Transition of care: patient was not received from another setting of care. Complicating Factors: There are no complicating factors for this patient. Onset of symptoms was June 23, 2019. Risk Assessment: Do you want to hurt yourself or someone else? Patient reports no desire to harm self or others. Initial Sepsis Screen: Does the patient meet any 2 criteria? No. Patient's initial sepsis screen is negative. Does the patient have a suspected source of infection? No. Patient's initial sepsis screen is negative. Care prior to arrival: None. 03:34 Method Of Arrival: Wheelchair tl1 03:34 Acuity: ADÁN 3 tl1 03:43 Mechanism of Injury: Fall from standing position. Trauma event details: [facility], Injury occurred: at home. Injury occurred: June 23, 2019 Injury occurred at: 03:00. Trauma Activation: Alert Physician: ED Physician; Name: ; Notified At: ; Arrived At: Physician: General Surgeon; Name: ; Notified At: ; Arrived At: Physician: Radiology; Name: ; Notified At: ; Arrived At: Physician: Respiratory; Name: ; Notified At: ; Arrived At: Physician: Lab; Name: ; Notified At: ; Arrived At: Historical: - Home Meds: 03:38 Amitiza 24 mcg Oral cap [Active]; aspirin 81 mg Oral TbEC 1 tab once daily [Active]; tl1 losartan 100 mg Oral tab 1 tab once daily [Active]; carvedilol 12.5 mg Oral tab [Active]; Lyrica Oral [Active]; omeprazole 40 mg Oral cpDR [Active]; ranitidine HCl 150 mg Oral cap [Active]; simvastatin 40 mg Oral tab [Active]; - PMHx: 03:38 High Cholesterol; Hypertension; Myocardial infarction; tl1 - Immunization history:: Adult Immunizations not up to date. - Coronavirus screen:: The patient has NOT traveled to [place], [place], or [place] in the past 14 days. - Immunization history: Last tetanus immunization: unknown. - Social history:: Smoking status: Patient/guardian denies using. - Ebola Screening: : Patient negative for fever greater than or equal to 101.5 degrees Fahrenheit, and additional compatible Ebola Virus Disease symptoms Patient denies exposure to infectious person. Screenin:43 Abuse screen: Denies threats or abuse. Denies injuries from another. Tuberculosis tl1 screening: No symptoms or risk factors identified. Never had TB. 04:09 Nutritional screening: No deficits noted. Fall Risk Fall in past 12 months (25 points). tl1 Primary Survey: 03:44 NO uncontrolled hemorrhage observed. A: The patient is alert. Airway: patent. tl1 Breathing/Chest: Respiratory pattern: regular, Respiratory effort: spontaneous, unlabored. Circulation: Skin temperature: warm, dry. Disability Alert. Exposure/Environment: All clothing and personal items were removed. Forensic evidence collection is not deemed to be indicated at this time. Items placed in patient belonging bag. Obvious injury(ies) are noted at this time: sustained laceration to top of head and bruise to forehead. Reassessment Breathing/Chest Respiratory pattern Regular Respiratory effort Spontaneous Unlabored Breath sounds Clear Chest inspection Symmetrical Circulation Color [place] Temperature Warm Dry Disability Alert. Assessment: 03:40 General: Appears in no apparent distress. uncomfortable, Behavior is calm, cooperative, tl1 appropriate for age. Pain: Complains of pain in top of head and forehead Pain currently is 4 out of 10 on a pain scale. Quality of pain is described as aching, tender. Neuro: Level of Consciousness is awake, alert, obeys commands, Oriented to person, place, time, situation, Speech is normal. EENT: No signs and/or symptoms were reported regarding the EENT system. Cardiovascular: Denies chest pain. Respiratory: Airway is patent. GI: Abdomen is non-distended, Bowel sounds present X 4 quads. Abd is soft and non tender X 4 quads. : No signs and/or symptoms were reported regarding the genitourinary system. Injury Description: Head injury sustained to top of head and forehead is open, did not have loss of consciousness, was sustained 30-60 minutes ago. Bruise sustained to forehead. 03:54 Reassessment: Patient returned from CT. lp1 04:09 Injury Description: Laceration sustained to top of head is jagged, 2.6 to 7.5 cm long, tl1 is bleeding a small amount. 04:28 Musculoskeletal: No signs and/or symptoms reported regarding the musculoskeletal system. 04:41 Reassessment: Patient appears in no apparent distress at this time. No changes from previously documented assessment. Patient and/or family updated on plan of care and expected duration. Pain level reassessed. Patient is alert, oriented x 3, equal unlabored respirations, skin warm/dry/pink. Vital Signs: 03:39 BP 163 / 63; Pulse 79; Resp 18; Temp 97.8(O); Pulse Ox 97% on R/A; Weight 68.04 kg; tl1 Height 4 ft. 11 in. (149.86 cm); Pain 4/10; 04:45 BP 135 / 62; Pulse 64; Resp 18; Pulse Ox 95% on R/A; wh 03:39 Body Mass Index 30.30 (68.04 kg, 149.86 cm) tl1 [place] Coma Score: 04:08 Eye Response: spontaneous(4). Verbal Response: oriented(5). Motor Response: obeys tl1 commands(6). Total: 15. 04:41 Eye Response: spontaneous(4). Verbal Response: oriented(5). Motor Response: obeys wh commands(6). Total: 15. Trauma Score (Adult): 04:08 Eye Response: spontaneous(1); Verbal Response: oriented(1); Motor Response: obeys tl1 commands(2); Systolic BP: > 89 mm Hg(4); Respiratory Rate: 10 to 29 per min(4); Nely Score: 15; Trauma Score: 12 04:41 Eye Response: spontaneous(1); Verbal Response: oriented(1); Motor Response: obeys wh commands(2); Systolic BP: > 89 mm Hg(4); Respiratory Rate: 10 to 29 per min(4); [place] Score: 15; Trauma Score: 12 ED Course: 03:26 Patient arrived in ED. ag3 03:30 [place], Ciaran, MD is Attending Physician. tw4 03:36 Triage completed. tl1 03:39 Arm band placed on right wrist. tl1 03:52 Betsy Gonzalez, RN is Primary Nurse. tl1 04:00 CT completed. Patient tolerated procedure well. Patient moved back from CT. 2 04:08 Assist provider with laceration repair on top of head that was between 2.6 to 7.5 cm tl1 using jae. Set up tray. Performed by Ciaran Hoskins MD Dressed with 4X4s, Patient tolerated well. Patient did not have IV access during this emergency room visit. 04:09 Patient maintains SpO2 saturation greater than 95% on room air. Thermoregulation: warm tl1 blanket given to patient. 04:10 Patient has correct armband on for positive identification. Placed in gown. Bed in low tl1 position. Call light in reach. Side rails up X 1. Pulse ox on. NIBP on. 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 Exp: 04/15/2021. Lot #: [id number]. } Route: IM; Site: right deltoid; 04:59 Follow up: Response: No adverse reaction Intake: 04:08 PO: 120ml (Water); Total: 120ml. tl1 Outcome: 04:45 Discharge ordered by . tw4 04:59 Discharged to home via wheelchair, with family. 04:59 Condition: stable 04:59 Discharge instructions given to patient, family, Instructed on discharge instructions, follow up and referral plans. POC Demonstrated understanding of instructions, follow-up care, POC 04:59 Patient's length of stay was not longer than 2 hours. 05:00 Patient left the ED. Signatures: Clary Cee RN RN 1 Betsy Gonzalez, RN RN tl1 Tamara Saavedra 2 Gideon Pritchett Terrence, MD MD tw4 Lacie Caruso ag3
[2019-06-23 10:27] VITALS: BP 135/62; O2SAT 95
[2019-06-23 10:29] VITALS: TEMP 97.8
== END 2019-06-23 05:00 | disposition home or self-care (01) ==
LOC: ER 03:22
PROC: 0JQ00ZZ Repair Scalp Subcutaneous Tissue and Fascia, Open Approach (ICD-10-PCS; principal; 2019-06-23)
DX: S01.01XA Laceration without foreign body of scalp, initial encounter (principal); S06.0X0A Concussion without loss of consciousness, initial encounter; W01.198A Fall on same level from slipping, tripping and stumbling with subsequent striking against other object, initial encounter; Y93.89 Activity, other specified; Y92.012 Bathroom of single-family (private) house as the place of occurrence of the external cause; I10 Essential (primary) hypertension; E78.00 Pure hypercholesterolemia, unspecified; I25.2 Old myocardial infarction; Z23 Encounter for immunization
CPT/HCPCS: 70450; 90471; 90714; 99284

== ENCOUNTER 2019-08-15 07:21 | Inpatient (IN) | payer OTHER ==
--- OUTSIDE RECORDS SUMMARY | 2019-08-15 07:23 | XMS REPORT ---
[...] Medications Results No Known Results Summary Purpose [email or web address] Submission
--- OUTSIDE RECORDS SUMMARY | 2019-08-15 07:24 | XMS REPORT ---
[...] End Date Status Dosage System Date Losartan [facility] 25117221266 100 MG Orally Active 1 tablet Potassium Once a day Diclofenac [facility] 05142661135 1 % Transdermal July Active as directed Sodium twice a day 2019 Flonase [facility] 35980725423 50 MCG/ACT August Active 2 spray in Nasally Once a 2018 each day nostril Prilosec [facility] 34036412499 40 MG Orally Active 1 capsule Once a day Carvedilol ND 23922454270 12.5 MG Orally Active as directed twice a day Lyrica ND 55570468404 100 MG Orally Active 1 capsule Two times a day Ranitidine HCl [facility] 53318585073 150 MG Orally Active 1 tablet as Once a day at needed bedtime Amitiza [facility] 44121780720 24 MCG Orally July Active 1 capsule Twice a day 2019 with food Simvastatin ND 08582594044 40 MG Orally Active 1 tablet in Once a day the evening Results No Known Results Summary Purpose eClinicalWorks Submission
--- OUTSIDE RECORDS SUMMARY | 2019-08-15 07:25 | XMS REPORT ---
[...] End Date Status Dosage System Date Prilosec [facility] 35863497267 40 MG Orally Active 1 capsule Once a day Nitroglycerin [facility] 52158919637 0.4 MG Active not Sublingual defined Amitiza [facility] 04304766030 24 MCG Orally May 25, November 20, Active 1 capsule Twice a day 2019 2019 with food and water Lyrica [facility] 63908153992 100 MG Orally Active 1 capsule Two times a day Nitrostat [facility] 63977337833 0.4 MG Active 1 tablet Sublingual as needed once a day for angina Carvedilol [facility] 92051276105 12.5 MG Orally Active as twice a day directed Flonase NDC 05429729474 50 MCG/ACT August Active 2 spray in Nasally Once a 2018 each day nostril Amitiza [facility] 79724954788 24 MCG Orally July Active 1 capsule Twice a day 2019 with food Prilosec [facility] 00823441289 40 Orally Once Active 1 capsule a day Tramadol HCl [facility] 43819552101 50 MG Orally Apr 15, Active 1 tablet every 6 hrs 2017 as needed Diclofenac [facility] 75032257094 3 % Externally Feb 18, Active as Sodium twice a day 2019 directed Simvastatin [facility] 93837834867 40 MG Orally Active 1 tablet Once a day in the evening Losartan [facility] 40188836290 100 MG Orally Active 1 tablet Potassium Once a day Aspir-81 [facility] 12689060169 81 MG Orally Active 1 tablet Once a day Ranitidine HCl [facility] 60279429751 150 MG Orally Active 1 tablet Once a day at as needed bedtime Results No Known Results Summary Purpose eClinicalWorks Submission
--- OUTSIDE RECORDS SUMMARY | 2019-08-15 07:26 | XMS REPORT ---
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 Active Assessment History of recent traumatic injury Z87.820 Active of head Assessment Unsteady gait R26.81 Active Assessment History of recent fall Z91.81 Active Assessment Traumatic ecchymosis of face, S00.83XS Active sequela Problem CHF (congestive heart failure) I50.9 Active Assessment Encounter for staple removal Z48.02 Active Problem HTN (hypertension) I10 Active Medications Medication Code Code Instructions Start End Date Status Dosage System Date Nitroglycerin [facility] 82566438531 0.4 MG Active not Sublingual defined Prilosec [facility] 86577444331 40 Orally Once Active 1 capsule a day Losartan [facility] 96625567950 100 MG Orally Active 1 tablet Potassium Once a day Simvastatin ND 14718247838 40 MG Orally Active 1 tablet Once a day in the evening Amitiza [facility] 29763404084 24 MCG Orally May 25, November 20, Active 1 capsule Twice a day 2019 2019 with food and water Prilosec [facility] 25160558701 40 MG Orally Active 1 capsule Once a day Lyrica ND 49269462213 100 MG Orally Active 1 capsule Two times a day Diclofenac [facility] 67944339473 3 % Externally Active as Sodium twice a day directed Amitiza [facility] 15575753786 24 MCG Orally July Active 1 capsule Twice a day 2019 with food Carvedilol [facility] 29979934803 12.5 MG Orally Active as twice a day directed Aspir-81 [facility] 83514893058 81 MG Orally Active 1 tablet Once a day Flonase [facility] 58325836076 50 MCG/ACT August Active 2 spray in Nasally Once a 2018 each day nostril Ranitidine HCl [facility] 19664500238 150 MG Orally Active 1 tablet Once a day at as needed bedtime Nitrostat [facility] 08638916340 0.4 MG Active 1 tablet Sublingual as needed once a day for angina Tramadol HCl [facility] 17052026275 50 MG Orally Active 1 tablet every 6 hrs as needed Results No Known Results Summary Purpose eClinicalWorks Submission
[2019-08-15] MEDS ORDERED: NA CHLORIDE 0.9% 1,000 ML ONE ×2 (07:47→10:27)
[2019-08-15 08:15] LABS: Absolute Lymphocytes (CBC) 0.5 K/uL (0.7-4.9); Basophils % 0.3 % (0-1.3); Hematocrit 36.6 % (36.0-45.0); Lymphocytes % 4.3 % (15.3-44.8); MPV 11.4 fL (7.6-11.3); RBC Red Blood Cell Count 4.46 M/uL (3.86-4.86)
[2019-08-15 08:18] LABS: Protime INR 1.21
--- NOTE | 2019-08-15 08:24 | RAD REPORT ---
EXAM DESCRIPTION: RAD - Chest Single View - 08/15/2019 8:17 am CLINICAL HISTORY: ABDOMINAL DISTENTION COMPARISON: Portable July 19 TECHNIQUE: AP portable chest image was obtained 08/15/2019 8:17 am . FINDINGS: Chronic interstitial lung disease is present similar to comparison. No focal mass or conso lidation. Heart and vasculature are normal. No measurable pleural effusion and no pneumothorax. Bony degenerative change present. Bilateral chronic shoulder degenerative change evident with chronic rota tor cuff tears. No acute aortic findings suspected. IMPRESSION: No acute cardiopulmonary process. Chronic interstitial pattern matches the July 19 study.
[2019-08-15] MEDS ORDERED: FAMOTIDINE 20 MG/2 ML VIAL IV ONE (08:25)
[2019-08-15 08:31] LABS: ALT/SGPT 13 U/L (12-78); AST/SGOT 11 U/L (15-37); Albumin 2.8 g/dL (3.4-5.0); Alkaline Phosphatase 104 U/L (45-117); BUN Blood Urea Nitrogen 48 mg/dL (7-18); Bicarbonate 23 mmol/L (21-32); Bilirubin Direct 0.3 mg/dL (0-0.2); Bilirubin Total 0.8 mg/dL (0.2-1.0); Glucose Level 202 mg/dL (74-106); Lipase 47 U/L (73-393); NT PRO-BNP 986 pg/mL (<450); Potassium 3.1 mmol/L (3.5-5.1); Protein, Total 6.4 g/dL (6.4-8.2); Sodium Level 139 mmol/L (136-145); Troponin (Emerg Dept Use Only) < 0.02 ng/mL (0.0-0.045)
--- NOTE | 2019-08-15 08:51 | ER ---
Nurse's Notes [facility] Name: Gale Waters Age: 79 yrs Sex: Female : 1940 Arrival Date: 08/15/2019 Time: 07:24 Bed 19 Private MD: Diagnosis: Hypotension;Acute kidney failure;Abdominal tenderness;Cholelithiasis;Elevated white blood cell count;Cholecystitis Presentation: 08/14 07:36 Chief complaint: Patient states: upper abdominal pain for 2 days, denies N/V/D or em fever. Coronavirus screen: Patient denies fever greater than 100.4F, cough, shortness of breath, or difficulty breathing. Proceed with normal triage process. Ebola Screen: Patient negative for fever greater than or equal to 101.5 degrees Fahrenheit, and additional compatible Ebola Virus Disease symptoms Patient denies exposure to infectious person. Patient denies travel to an Ebola-affected area in the 21 days before illness onset. No symptoms or risks identified at this time. Initial Sepsis Screen: Does the patient meet any 2 criteria? No. Patient's initial sepsis screen is negative. Does the patient have a suspected source of infection? No. Patient's initial sepsis screen is negative. Risk Assessment: Do you want to hurt yourself or someone else? Patient reports no desire to harm self or others. 07:36 Method Of Arrival: Wheelchair em 07:36 Acuity: ADÁN 3 em 08:50 Acuity: ADÁN 2 iw Historical: - Allergies: 07:45 No Known Allergies; em - Home Meds: 07:45 Amitiza 24 mcg Oral cap [Active]; aspirin 81 mg Oral TbEC 1 tab once daily [Active]; em carvedilol 12.5 mg Oral tab [Active]; losartan 100 mg Oral tab 1 tab once daily [Active]; Lyrica Oral [Active]; omeprazole 40 mg Oral cpDR [Active]; ranitidine HCl 150 mg Oral cap [Active]; simvastatin 40 mg Oral tab [Active]; - PMHx: 07:45 High Cholesterol; Hypertension; Myocardial infarction; em - PSHx: 07:45 None; em - Immunization history:: Adult Immunizations up to date. - Social history:: Smoking status: Patient denies any tobacco usage or history of. - Family history:: not pertinent. Screenin:36 Abuse screen: Denies threats or abuse. Abuse screen: Denies threats or abuse. em Nutritional screening: No deficits noted. Tuberculosis screening: No symptoms or risk factors identified. Fall Risk None identified. Assessment: 07:36 General: Appears in no apparent distress. comfortable, Behavior is calm, cooperative, em appropriate for age, Denies fever. Pain: Complains of pain in abdomen diffusely Pain currently is 10 out of 10 on a pain scale. Pain began 2-3 days ago. Neuro: Level of Consciousness is awake, alert, obeys commands, Oriented to person, place, time, situation, Appropriate for age. Cardiovascular: Capillary refill < 3 seconds Patient's skin is warm and dry. Respiratory: Airway is patent Respiratory effort is even, unlabored, Respiratory pattern is regular, symmetrical. GI: Abdomen is flat, Bowel sounds present X 4 quads. Abd is soft X 4 quads Abdomen is tender to palpation X 4 quads. Patient currently denies diarrhea, nausea, vomiting. : Denies burning with urination. Derm: Skin is intact, is healthy with good turgor, Skin is pink, warm \T\ dry. Musculoskeletal: Capillary refill < 3 seconds, Range of motion: intact in all extremities. 08:26 Reassessment: Patient appears in no apparent distress at this time. US at bedside. em 08:45 Reassessment: Patient appears in no apparent distress at this time. pt wheeled to CT em via stretcher. 09:50 Reassessment: Patient appears in no apparent distress at this time. Patient and/or em family updated on plan of care and expected duration. Pain level reassessed. Patient is alert, oriented x 3, equal unlabored respirations, skin warm/dry/pink. Patient states feeling better. Patient states symptoms have improved. 10:46 Reassessment: Patient appears in no apparent distress at this time. Patient and/or em family updated on plan of care and expected duration. Pain level reassessed. Patient is alert, oriented x 3, equal unlabored respirations, skin warm/dry/pink. Patient states feeling better. Vital Signs: 07:36 BP 103 / 52; Pulse 90; Resp 18; Temp 97.9(O); Pulse Ox 99% on R/A; Weight 72.57 kg; em Pain 02/24; 08:03 BP 88 / 46; Pulse 87; Resp 18; Pulse Ox 99% on R/A; Pain 0/10; em 08:19 BP 88 / 48; Pulse 81; Resp 18; Pulse Ox 100% on R/A; em 08:30 BP 103 / 66; Pulse 82; Resp 18; Pulse Ox 99% on R/A; em 09:03 BP 112 / 50; Pulse 85; Resp 16; Pulse Ox 99% on R/A; Pain 0/10; em 10:28 BP 98 / 48; Pulse 81; Resp 18; Pulse Ox 99% on R/A; Pain 0/10; em 10:53 BP 107 / 51; Pulse 80; Resp 18; Pulse Ox 99% on R/A; em 08:03 provider notified of BP, received new orders em ED Course: 07:24 Patient arrived in ED. ag3 07:25 John Cary MD is Attending Physician. josy 07:25 Raquel Tompkins, RN is Primary Nurse. jl7 07:36 Lamine Ayala, RN is Primary Nurse. em 07:36 Patient has correct armband on for positive identification. Bed in low position. Call em light in reach. Side rails up X2. Adult w/ patient. Pulse ox on. NIBP on. 07:39 Triage completed. em 07:45 Arm band placed on. em 08:11 EKG done, by ED staff, reviewed by John Cary MD. at1 08:18 XRAY Chest (1 view) In Process Unspecified. EDMS 08:40 US Abdomen Limited In Process Unspecified. EDMS 08:48 Geovanny Acevedo MD is Hospitalizing Provider. josy 08:52 CT Abd/Pelvis - Without Contrast In Process Unspecified. EDMS 10:43 No provider procedures requiring assistance completed. Patient admitted, IV remains in em place. Administered Medications: 07:55 Drug: NS 0.9% 1000 ml Route: IV; Rate: 125 ml/hr; Site: right forearm; em 11:17 Follow up: IV Status: Infusion continued upon admission em 08:14 Drug: NS 0.9% 1000 ml Route: IV; Rate: 1 bolus; Site: right forearm; em 09:40 Follow up: IV Status: Completed infusion; IV Intake: 1000ml em 08:27 Drug: Pepcid 20 mg Route: IVP; Site: right forearm; em 09:00 Follow up: Response: No adverse reaction; Marked relief of symptoms; Pain is decreased em 09:26 Drug: Zosyn 2.25 grams Route: IVPB; Infused Over: 60 mins; Site: right forearm; em 10:14 Follow up: IV Status: Completed infusion; IV Intake: 100ml em Intake: 09:40 IV: 1000ml; Total: 1000ml. em 10:14 IV: 100ml; Total: 1100ml. em Outcome: 08:49 Decision to Hospitalize by Provider. josy 11:08 Admitted to Med/surg accompanied by tech, via wheelchair, room 206, with chart, Report em called to RAPHAEL Olivarez 11:08 Condition: good 11:08 Instructed on the need for admit, Demonstrated understanding of instructions. 11:17 Patient left the ED. em Signatures: Dispatcher [employer] John Mane MD MD cha Munoz, Edgar RN RN Lucy Dixon RN Sherry Elliott, model maker plaster EKG Tat1 Raquel Tompkins RN RN jl7 Lacie Caruso ag3
--- NOTE | 2019-08-15 08:52 | EDPHYS ---
Physician Documentation [facility] Name: Gale Waters Age: 79 yrs Sex: Female : 1940 Arrival Date: 08/15/2019 Time: 07:24 Bed 19 Private MD: ED Physician John Cary HPI: 08/14 08:44 This 79 yrs old Female presents to ER via Wheelchair with complaints of josy Abdominal Pain. 08:44 The patient presents with abdominal pain in the epigastric area, in the upper abdomen. josy Onset: The symptoms/episode began/occurred 2 day(s) ago. The symptoms do not radiate. Associated signs and symptoms: none. Modifying factors: The symptoms are alleviated by nothing, the symptoms are aggravated by nothing. Severity of pain: At its worst the pain was mild in the emergency department the pain is unchanged. The patient has not experienced similar symptoms in the past. Historical: - Allergies: 07:45 No Known Allergies; em - Home Meds: 07:45 Amitiza 24 mcg Oral cap [Active]; aspirin 81 mg Oral TbEC 1 tab once daily [Active]; em carvedilol 12.5 mg Oral tab [Active]; losartan 100 mg Oral tab 1 tab once daily [Active]; Lyrica Oral [Active]; omeprazole 40 mg Oral cpDR [Active]; ranitidine HCl 150 mg Oral cap [Active]; simvastatin 40 mg Oral tab [Active]; - PMHx: 07:45 High Cholesterol; Hypertension; Myocardial infarction; em - PSHx: 07:45 None; em - Immunization history:: Adult Immunizations up to date. - Social history:: Smoking status: Patient denies any tobacco usage or history of. - Family history:: not pertinent. ROS: 08:44 Constitutional: Negative for fever, chills, and weight loss, Eyes: Negative for injury, josy pain, redness, and discharge, ENT: Negative for injury, pain, and discharge, Neck: Negative for injury, pain, and swelling, Cardiovascular: Negative for chest pain, palpitations, and edema, Respiratory: Negative for shortness of breath, cough, wheezing, and pleuritic chest pain, Back: Negative for injury and pain, : Negative for injury, bleeding, discharge, and swelling, MS/Extremity: Negative for injury and deformity, Skin: Negative for injury, rash, and discoloration, Neuro: Negative for headache, weakness, numbness, tingling, and seizure, Psych: Negative for depression, anxiety, suicide ideation, homicidal ideation, and hallucinations, Allergy/Immunology: Negative for hives, rash, and allergies, Endocrine: Negative for neck swelling, polydipsia, polyuria, polyphagia, and marked weight changes, Hematologic/Lymphatic: Negative for swollen nodes, abnormal bleeding, and unusual bruising. 08:44 Abdomen/GI: Positive for abdominal pain, of the right upper quadrant and left upper quadrant. Exam: 08:44 Constitutional: This is a well developed, well nourished patient who is awake, alert, josy and in no acute distress. Head/Face: Normocephalic, atraumatic. Eyes: Pupils equal round and reactive to light, extra-ocular motions intact. Lids and lashes normal. Conjunctiva and sclera are non-icteric and not injected. Cornea within normal limits. Periorbital areas with no swelling, redness, or edema. ENT: Nares patent. No nasal discharge, no septal abnormalities noted. Tympanic membranes are normal and external auditory canals are clear. Oropharynx with no redness, swelling, or masses, exudates, or evidence of obstruction, uvula midline. Mucous membranes moist. Neck: Trachea midline, no thyromegaly or masses palpated, and no cervical lymphadenopathy. Supple, full range of motion without nuchal rigidity, or vertebral point tenderness. No Meningismus. Chest/axilla: Normal chest wall appearance and motion. Nontender with no deformity. No lesions are appreciated. Cardiovascular: Regular rate and rhythm with a normal S1 and S2. No gallops, murmurs, or rubs. Normal PMI, no JVD. No pulse deficits. Respiratory: Lungs have equal breath sounds bilaterally, clear to auscultation and percussion. No rales, rhonchi or wheezes noted. No increased work of breathing, no retractions or nasal flaring. Back: No spinal tenderness. No costovertebral tenderness. Full range of motion. Skin: Warm, dry with normal turgor. Normal color with no rashes, no lesions, and no evidence of cellulitis. MS/ Extremity: Pulses equal, no cyanosis. Neurovascular intact. Full, normal range of motion. Neuro: Awake and alert, GCS 15, oriented to person, place, time, and situation. Cranial nerves II-XII grossly intact. Motor strength 5/5 in all extremities. Sensory grossly intact. Cerebellar exam normal. Normal gait. Psych: Awake, alert, with orientation to person, place and time. Behavior, mood, and affect are within normal limits. 08:44 Abdomen/GI: Inspection: abdomen appears normal, Bowel sounds: normal, Palpation: mild abdominal tenderness, in the epigastric area, right upper quadrant and left upper quadrant. Vital Signs: 07:36 BP 103 / 52; Pulse 90; Resp 18; Temp 97.9(O); Pulse Ox 99% on R/A; Weight 72.57 kg; em Pain 10/10; 08:03 BP 88 / 46; Pulse 87; Resp 18; Pulse Ox 99% on R/A; Pain 0/10; em 08:19 BP 88 / 48; Pulse 81; Resp 18; Pulse Ox 100% on R/A; em 08:30 BP 103 / 66; Pulse 82; Resp 18; Pulse Ox 99% on R/A; em 09:03 BP 112 / 50; Pulse 85; Resp 16; Pulse Ox 99% on R/A; Pain 0/10; em 10:28 BP 98 / 48; Pulse 81; Resp 18; Pulse Ox 99% on R/A; Pain 0/10; em 10:53 BP 107 / 51; Pulse 80; Resp 18; Pulse Ox 99% on R/A; em 08:03 provider notified of BP, received new orders em MDM: 07:33 Patient medically screened. [facility] 08:46 Data reviewed: vital signs, nurses notes, lab test result(s), EKG, radiologic studies, [facility] scan, plain films. 08/14 07:35 Order name: Basic Metabolic Panel; Complete Time: 08:35 [facility] 08/14 07:35 Order name: CBC with Diff [facility] 08/14 07:35 Order name: LFT's; Complete Time: 08:35 [facility] 08/14 07:35 Order name: Magnesium; Complete Time: 08:35 [facility] 08/14 07:35 Order name: NT PRO-BNP; Complete Time: 08:35 [facility] 08/14 07:35 Order name: PT-INR; Complete Time: 08:35 [facility] 08/14 07:35 Order name: Troponin (emerg Dept Use Only); Complete Time: 08:35 [facility] 08/14 07:35 Order name: Lipase; Complete Time: 08:35 [facility] 08/14 07:35 Order name: Urine Culture [facility] 08/14 09:50 Order name: CBC with Automated Diff [facility] 08/14 09:50 Order name: CBC with Automated Diff [facility] 08/14 09:50 Order name: Comprehensive Metabolic Panel [facility] 08/14 09:50 Order name: Comprehensive Metabolic Panel [facility] 08/14 10:07 Order name: CBC Smear Scan [facility] 08/14 07:35 Order name: XRAY Chest (1 view); Complete Time: 08:53 [facility] 08/14 07:35 Order name: EKG; Complete Time: 07:37 [facility] 08/14 07:35 Order name: Cardiac monitoring; Complete Time: 08:03 [facility] 08/14 07:35 Order name: EKG - Nurse/Tech; Complete Time: 08:03 [facility] 08/14 07:35 Order name: IV Saline Lock; Complete Time: 08:03 [facility] 08/14 08:13 Order name: US Abdomen Limited; Complete Time: 09:30 [facility] 08/14 08:37 Order name: CT Abd/Pelvis - Without Contrast [facility] 08/14 09:50 Order name: CONS Pharmacy Consult [facility] 08/14 09:50 Order name: Renal [facility] 08/14 09:51 Order name: CONS Physician Consult [facility] 08/14 07:35 Order name: Labs collected and sent; Complete Time: 08:03 [facility] 08/14 07:35 Order name: O2 Per Protocol; Complete Time: 08:03 [facility] 08/14 07:35 Order name: O2 Sat Monitoring; Complete Time: 08:02 [facility] Administered Medications: 07:55 Drug: NS 0.9% 1000 ml Route: IV; Rate: 125 ml/hr; Site: right forearm; em 11:17 Follow up: IV Status: Infusion continued upon admission em 08:14 Drug: NS 0.9% 1000 ml Route: IV; Rate: 1 bolus; Site: right forearm; em 09:40 Follow up: IV Status: Completed infusion; IV Intake: 1000ml em 08:27 Drug: Pepcid 20 mg Route: IVP; Site: right forearm; em 09:00 Follow up: Response: No adverse reaction; Marked relief of symptoms; Pain is decreased em 09:26 Drug: Zosyn 2.25 grams Route: IVPB; Infused Over: 60 mins; Site: right forearm; em 10:14 Follow up: IV Status: Completed infusion; IV Intake: 100ml em Disposition: 08/15/19 08:49 Hospitalization ordered by Geovanny Acevedo for Inpatient Admission. Preliminary diagnosis are Hypotension, Acute kidney failure, Abdominal tenderness, Cholelithiasis, Elevated white blood cell count, Cholecystitis. - Bed requested for Telemetry/MedSurg (Inpatient). - Status is Inpatient Admission. em - Condition is Fair. - Problem is new. - Symptoms have improved. Signatures: Dispatcher [employer] EDMS Carolina Kothari Diana, RN RN dw Anderson, Corey, MD MD cha Munoz, Edgar, RN RN em Attema, Lee, BUFFET SERVER-C BUFFET SERVER-Cla1 Corrections: (The following items were deleted from the chart) 08:37 08:11 Abdomen Pelvis W Con+CT.RAD.BRZ ordered. EDAZ EDMS 08:42 08:37 Abdomen ordered. EDAZ EDAZ 09:01 08:49 Hospitalization Ordered by Geovanny Acevedo MD for Inpatient Admission. Preliminary josy diagnosis is Hypotension; Acute kidney failure; Abdominal tenderness. Bed requested for Telemetry/MedSurg (Inpatient). Status is Inpatient Admission. Condition is Fair. Problem is new. Symptoms have improved. josy 09:02 09:01 08/15/2019 08:49 Hospitalization Ordered by Geovanny Acevedo MD for Inpatient josy Admission. Preliminary diagnosis is Hypotension; Acute kidney failure; Abdominal tenderness; Cholelithiasis. Bed requested for Telemetry/MedSurg (Inpatient). Status is Inpatient Admission. Condition is Fair. Problem is new. Symptoms have improved. josy 09:03 09:02 08/15/2019 08:49 Hospitalization Ordered by Geovanny Acevedo MD for Inpatient josy Admission. Preliminary diagnosis is Hypotension; Acute kidney failure; Abdominal tenderness; Cholelithiasis; Elevated white blood cell count. Bed requested for Telemetry/MedSurg (Inpatient). Status is Inpatient Admission. Condition is Fair. Problem is new. Symptoms have improved. josy 10:36 09:03 08/15/2019 08:49 Hospitalization Ordered by Geovanny Acevedo MD for Inpatient dw Admission. Preliminary diagnosis is Hypotension; Acute kidney failure; Abdominal tenderness; Cholelithiasis; Elevated white blood cell count; Cholecystitis. Bed requested for Telemetry/MedSurg (Inpatient). Status is Inpatient Admission. Condition is Fair. Problem is new. Symptoms have improved. josy 10:36 10:36 08/15/2019 08:49 Hospitalization Ordered by Geovanny Acevedo MD for Inpatient bd Admission. Preliminary diagnosis is Hypotension; Acute kidney failure; Abdominal tenderness; Cholelithiasis; Elevated white blood cell count; Cholecystitis. Bed requested for Telemetry/MedSurg (Inpatient). Status is Inpatient Admission. Condition is Fair. Problem is new. Symptoms have improved. dw 11:17 10:36 08/15/2019 08:49 Hospitalization Ordered by Geovanny Acevedo MD for Inpatient em Admission. Preliminary diagnosis is Hypotension; Acute kidney failure; Abdominal tenderness; Cholelithiasis; Elevated white blood cell count; Cholecystitis. Bed requested for Telemetry/MedSurg (Inpatient). Status is Inpatient Admission. Condition is Fair. Problem is new. Symptoms have improved. bd
--- NOTE | 2019-08-15 09:17 | RAD REPORT ---
EXAM DESCRIPTION: US - Abdomen Exam Limited - 08/15/2019 8:38 am CLINICAL HISTORY: ABD PAIN COMPARISON: No comparisons FINDINGS: Multiple small less than 5 mm mobile gallstones are identified. Mild gallbladder wall thic kening is present. Minimal pericholecystic fluid is seen. No common duct stone or biliary tree dilatation identified. IMPRESSION: Gallbladder wall thickening, minimal pericholecystic fluid and multiple small gallstones seen. Findings are consistent with an acute cholecystitis and need correlation with clinical presen tation. No duct stone or biliary tree dilatation.
--- NOTE | 2019-08-15 09:21 | RAD REPORT ---
EXAM DESCRIPTION: CT - Abdomen Pelvis Wo Contrast - 08/15/2019 8:52 am CLINICAL HISTORY: ABD PAIN COMPARISON: Abdomen Exam Limited dated 08/15/2019; CT HEAD SPINE CAP W CONTRAST dated 07/20/2015 TECHNIQUE: Axial [address] imaging of the abdomen and pelvis was performed without IV contrast. No IV contrast was given because of allergy, abnormal renal function, patient refusal or physician re quest. No oral contrast administered. All CT scans are performed using dose optimization technique as appropriate and may include automated exposure control or mA/KV adjustment according to patient size. FINDINGS: No suspicious findings in the lung bases. The liver, spleen and pancreas show no suspicious findings on non-contrast imaging. Gallbladder is ab normal. Well filled gallbladder shows wall thickening and edema. Minimal pericholecystic fluid is pre sent. A few punctate gallstones are identified. Biliary tree is not dilated. No hydronephrosis or suspicious renal mass. No significant adrenal finding. Isodense renal masses an d pyelonephritis cannot be excluded in the absence of IV contrast. Urinary bladder is fully contracte d. Uterus and ovaries show no suspicious findings. No dilated bowel loops or bowel wall thickening. Appendix is normal. Prominent diverticulosis present without diverticulitis. No free air, free fluid or pneumatosis otherwise noted. No hernia, mass or b ulky lymphadenopathy. Prominent lower lumbar disc and bone degenerative change present. IMPRESSION: Acute cholecystitis findings are evident in the gallbladder. This matches the ultrasound of the same date. No biliary tree dilatation. Full assessment is limited is the absence of IV contrast.
[2019-08-15] MEDS ORDERED: PIPER/TAZO/NS 3.375gm 3.375 GM/100 ML BAG ONE (09:25)
[2019-08-15] MEDS ORDERED: ONDANSETRON 4 MG/2 ML VIAL IV PRN (09:43)
--- NOTE | 2019-08-15 09:47 | P.HP ---
Patient History Date of Service: 08/15/19 Reason for admission: Abdominal pain History of Present Illness: Ms. Waters is 79 y/o female with h/o HTN, HL who presented to the ER with c /o epigastric pain radiating to bilateral upper quadrants. pain started 3 days ago, remained constant, intensity increases to severe sometimes. Pain is associated with nausea, no vomiting and no fever. She describes pain as achy and colicky. In the ER, work up is consistent with acute cholecystitis and renal failure. She endorses poor po intake and decreased urine output. Allergies No Known Allergies Allergy (Unverified 08/15/19 10:50) Home Medications: Carvedilol [Coreg] 12.5 mg PO BID 08/15/19 Losartan Potassium 100 mg PO DAILY 08/15/19 Nitroglycerin 1 tab SL DAILY PRN 08/15/19 Omeprazole [Prilosec] 40 mg PO DAILY 08/15/19 Pregabalin [Lyrica] 100 mg PO BID 08/15/19 Ranitidine [Zantac*] 150 mg PO BEDTIME 08/15/19 Simvastatin [Zocor] 40 mg PO BEDTIME 08/15/19 Tramadol HCl [Ultram] 50 mg PO Q6H PRN 08/15/19 - Past Medical/Surgical History -: Hypertension -: Hyperlipidemia -: CAD -: RA -: Bilateral breast lumpectomy - Social History Smoking Status: Never smoker Smoking therapy provided: No Patient receptive to therapy: No Alcohol use: No CD- Drugs: No Caffeine use: No Place of Residence: Home Review of Systems General: As per HPI Eyes: As per HPI ENT: Unremarkable Respiratory: Unremarkable Cardiovascular: Unremarkable Gastrointestinal: Nausea, Abdominal Pain Genitourinary: As per HPI Physical Examination - Vital Signs Temperature: 97.9 F Blood Pressure: 103/52 Pulse: 90 Respirations: 18 Pulse Ox (%): 99 - Physical Exam General: Alert, In no apparent distress HEENT: Atraumatic, PERRLA, Mucous membr. moist/pink, EOMI, Sclerae nonicteric Neck: Supple, 2+ carotid pulse no bruit, No LAD, Without JVD or thyroid abnormality Respiratory: Clear to auscultation bilaterally, Normal air movement Cardiovascular: Regular rate/rhythm, Normal S1 S2 Gastrointestinal: Normal bowel sounds, Tenderness (Epigastric. + murphys) Musculoskeletal: Other (R hand deformity from RA. Nodules noted. ) Integumentary: No rashes Neurological: Normal gait, Normal speech, Normal strength at 5/5 x4 extr, Normal tone, Normal affect Lymphatics: No axilla or inguinal lymphadenopathy - Studies Laboratory Data (last 24 hrs) 08/15/19 07:55: PT 14.2 H, INR 1.21 08/15/19 07:55: WBC 12.5 H, Hgb 11.8 L, Hct 36.6, Plt Count 113 L 08/15/19 07:55: Sodium 139, Potassium 3.1 L, BUN 48 H, Creatinine 3.26 H, Glucose 202 H, Magnesium 2.0, Total Bilirubin 0.8, AST 11 L, ALT 13, Alkaline Phosphatase 104, Lipase 47 L Assessment and Plan - Plan Ms. Waters is 79 y/o female pw abd pain. #Acute cholecystitis- CT & US of abdomen as well as PE demonstrates diagnosis. - leukocytosis. Hypotensive. Lactic acid is pending. -IV zosyn; IV fluid -pain control, antiemetics. Maintain npo -DW surgeon. Plan for lap albertina in a.m. #CLAU- pt denies any prior h/o kidney disease. On ARB at home. suspect Prerenal- > ATN - Urinalysis, Urine Na and Cr pending. -IV hydration. Avoid nephrotoxins and trend cr -CT with no evidence of post obstructive uropathy -IV hydration. Monitor urine output. oliguric. -Organ Builder on on consult #Hypokalemia- replace. #Hyperglycemia- denies h/o diabetes. Rule out with [id number]. #CAD- on ARB and BB at home, will hold due to hypotension and renal failure. - Monitor closely. - Aspirin # HL- resume statin. DVT ppx- SCD Patient is full code. - Advance Directives Does patient have a Living Will: No Does patient have a Durable POA for Healthcare: No
[2019-08-15] MEDS: NA CHLORIDE 0.9% 1,000 ML IV SCH (10:00)
[2019-08-15 10:07] LABS: Blood Morphology Comment NOT SEEN (NOT SEEN); Platelet Estimate ADEQ; Urine White Blood Cell Casts OK
[2019-08-15] MEDS ORDERED: MORPHINE 4 MG/ML SYR IV PRN (13:20)
[2019-08-15 13:33] LABS: Urine Appearance CLOUDY; Urine Blood NEGATIVE (NEG); Urine Color DK YELLOW; Urine Glucose NEGATIVE (NEG); Urine Protein 1+ (NEG); Urine Specific Gravity 1.025 (1.005-1.030)
[2019-08-15 13:55] LABS: Urine Bilirubin NEGATIVE (NEG); Urine Microscopic Reflex ORDER UMIC
[2019-08-15] MEDS ORDERED: POTASSIUM CL 40 MEQ in NA CHLORIDE 0.9% 500 ML IV SCH (14:00)
[2019-08-15 14:06] LABS: Urine Bacteria 20-50 /HPF (<20); Urine RBC <5 /HPF (NONE SEEN)
[2019-08-15 14:07] LABS: Urine Coarse Granular Casts 0-5 /LPF (NONE SEEN); Urine Culture Reflex Order NOT NEEDED; Urine Mucus 1+ /HPF (NONE SEEN)
--- NOTE | 2019-08-15 14:36 | CON ---
Date of Consultation: 08/15/2019 Diagnosis: Right upper quadrant pain, Mccarty sign positive, acute cholecystitis, symptomatic choleli thiasis. History Of Present Illness: This is a case of a 79-year-old patient with several days history of abd ominal pain. She has been at home, trying to hold this by herself but today she could not do it anym ore and she came to the ER today. Patient was admitted to the hospital with an acute cholecystitis f or IV antibiotics. She has also some mild renal insufficiency. The primary doctor believes it is pr erenal, so they are trying to optimizer her for possible surgery, in this case gallbladder surgery. They consulted me. Allergies: NONE. Past Surgical History: Surgeries include bilateral breast lumpectomy, she claimed it was negative fo r cancer. Past Medical History: Includes high cholesterol, hypertension, myocardial infarction in the past. Social History: She does not smoke. She does not drink alcohol. Review of Systems: Ten points are otherwise unremarkable. General: Patient is awake and alert, is still complaining epigastric right upper quadrant pain radia ting to the back. Mccarty sign positive. Chest: Bilateral breath sounds clear. Extremities: Good capillary refill. Rectal: Deferred. Breasts: Deferred. Laboratory Data: Blood work shows WBC count of 12.5, hemoglobin of 11.8. INR is 1.2, potassium is 3 .1, creatinine is 3.26. CAT scan of the abdomen and pelvis shows acute cholecystitis with gallbladde r thickening and pericholecystic fluid matching the ultrasound results. Assessment: This is a 79-year-old patient with acute cholecystitis, intractable abdominal pain, Murp hy sign positive. This patient most likely will require surgery, urgent to emergent. The medical do ctors today just admitted her and trying to correct some electrolytes and some other medical issues i ncluding the renal insufficiency. Patient has history of [place], so we will also ask for cardiology eval uation. The patient fully explained the options of laparoscopic, possible open cholecystectomy, whic h benefits and risks including, but not limited to infection, bleeding, damage to adjacent structures as complication, choledocholithiasis, bile leak, pancreatitis, [place], and even . She also underst ands this may not relieve the symptoms. She might need more than one surgical intervention. She und erstands the nature of emergency at this moment and how we do an urgent and emergent cases at this mo ment with the risks also being positive for coronavirus. She understands the risk. She is also tryi ng to be at home by changing her diet and she has not been able to do so. So, whenever the medical d octors finish the clearance, we will proceed with the surgery unless clinically something different o r improvement happen. BLANCO/GIL Voice ID: [id number] Report ID: [id number]
[2019-08-15] MEDS: PIPER/TAZO/NS 3.375gm 3.375 GM/100 ML BAG IVPB SCH (17:53)
[2019-08-15] MEDS: RANITIDINE 150 MG TABLET PO SCH (20:09)
[2019-08-15] MEDS: ATORVASTATIN 20 MG TAB PO SCH (20:09)
[2019-08-15] MEDS: PREGABALIN 50 MG CAP PO SCH (20:10)
[2019-08-15] MEDS ORDERED: carvediloL 12.5 MG TAB PO SCH (21:00)
--- NOTE | 2019-08-15 21:12 | CON ---
Date of Consultation: 08/15/2019 Chief Complaint: Acute kidney injury. History Of Present Illness: Patient was admitted to the hospital, blood work showed severely elevated azotemia, BUN is 48, creatinine 3.26. Patient has nonoliguric urine output and electrolytes showed hypokalemia, potassium 3.1, sodium was normal 139, chloride 106, CO2 of 23, lactic acid was 0.7, calcium 8.5 , and magnesium 2.0. The patient was found to have hypoalbuminemia, total protein is 6.4 and albumin is 2.8. Patient previously had blood work done back in April 2019, and it showed creatinine of 0.6 and BUN 27. Today, patient was found to have severe acute kidney injury, although she remains nonoliguric and is responding to some fluid infusion to prevent renal hypoperfusion and worsening of the renal function. Patient is scheduled for cholecystectomy tomorrow. Patient was found to have right upper quadrant pain. Mccarty sign was positive and she was admitted for acute cholecystitis, acute kidney injury. The patient is a 79-year-old woman with history of few days of abdominal pain. She came to the emergency room. She was found to have acute cholecystitis and IV antibiotics was started. The patient has some history of blood pressure, hypertension, myocardial infarction, hypercholesterolemia, previous surgery related to breast lumpectomy, although she claimed that she had negative cancer history. Review of Systems: Constitutional: The patient was complaining of abdominal pain. She denies syncope. Eyes: Denies vision changes. Ears, Nose, Mouth and Throat: Denies sore throat, earache. Respiratory: Denies PND, orthopnea. Cardiovascular: Denies chest pain, palpitations. GI: Complaining of epigastric pain and right upper quadrant pain. : Denies dysuria, hematuria. Musculoskeletal: Denies muscle aches or joint swelling. All other systems reviewed and all are negative. Past Surgical History: Bilateral lumpectomy, negative for cancer. Past Medical History: Hypercholesteremia, hypertension, myocardial infarction. Social History: Denies tobacco, alcohol, or illicit drugs. Physical Examination: General: Patient is awake, alert, follows commands. Eyes: Anicteric sclerae. EOMI. Ears, Nose, Mouth and Throat: Oral mucosa moist. No pallor. Neck: Supple, no bruits. Lungs: Clear to auscultation bilaterally. No rhonchi, no wheezing. Heart: S1 and S2. No pericardial friction rub. Abdomen: Soft. Benign. There is no rebound, no guarding. There is epigastric tenderness in the right upper quadrant. Pain and tenderness with Mccarty sign. No CVA tenderness. Extremities: No edema, no clubbing, no cyanosis. Neurological: Moving extremities. Cranial nerves intact. Psychiatric: Alert and oriented x3. Normal affect. Laboratory Data: WBC 12.5, hemoglobin 11.8, INR 1.2, potassium 3.1, creatinine 3.26. CT scan of the abdomen and pelvis showed cholecystitis with gallbladder thickening and pericholecystic fluid matching with ultrasound finding. Liver, spleen, and pancreas show no suspicious findings on noncontrast imaging test. No hydronephrosis or suspicious renal mass. No significant adrenal findings. Isodense renal masses and pyelonephritis cannot be excluded. No biliary tree dilatation. Impression And Plan: 1. Acute kidney injury, severe secondary to hypovolemia, renal hypoperfusion leading to prerenal azotemia. Patient will continue IV fluids to stabilize kidney function to prevent renal hypoperfusion. Home medications include losartan, which is on hold due to acute kidney injury. The patient has hypertension. Patient will continue carvedilol. There is no evidence of rhabdomyolysis. Patient was previously taking anticholesterol-lowering medication, which has a risk of rhabdomyolysis. At this point, patient has prerenal azotemia and she is started on hydration with normal saline infusion. Patient will have potassium replacement. Plan is to monitor magnesium and phosphorus and adjust treatment as needed. Magnesium level today is within normal limits. 2. The patient has history of coronary artery, plan is to monitor troponin level. 3. Hypovolemia. Continue Iv fluids. Patient has cholecystitis, cultures are pending. Lactic acid is normal. There is no evidence of lactic acidosis. Monitor electrolytes and adjust treatment with antibiotics as needed. EB/MODL Voice ID: [id number] Report ID: [id number] SHAMAR
[2019-08-16] MEDS: PIPER/TAZO/NS 3.375gm 3.375 GM/100 ML BAG IVPB SCH ×2 (00:09→07:28)
[2019-08-16] MEDS: NA CHLORIDE 0.9% 1,000 ML IV SCH ×3 (01:58→22:17)
[2019-08-16 04:35] LABS: Absolute Lymphocytes (CBC) 0.7 K/uL (0.7-4.9); Basophils % 0.3 % (0-1.3); Hematocrit 33.9 % (36.0-45.0); Lymphocytes % 7.6 % (15.3-44.8); MPV 10.9 fL (7.6-11.3); RBC Red Blood Cell Count 4.12 M/uL (3.86-4.86)
--- NOTE | 2019-08-16 05:25 | EKG ---
Test Date: 2019-08-15 Test Time: 07:54:24 Quality Control Analyst: SARAH MEASUREMENT RESULTS: Intervals: Rate: 87 RI: 124 QRSD: 118 QT: 416 QTc: 500 [place]: P: 35 RI: 124 QRS: 48 T: 15 INTERPRETIVE STATEMENTS: Normal sinus rhythm Right bundle branch block Abnormal ECG Compared to ECG 07/20/2015 14:02:50 No significant changes Electronically Signed On 08-16-19 05:24:11 CDT by Narendra Matthews
[2019-08-16] MEDS: PREGABALIN 50 MG CAP PO SCH ×2 (07:28→21:00)
[2019-08-16] MEDS ORDERED: LIDOCAINE 2% MPF 5 ML VIAL ONE (07:49)
[2019-08-16] MEDS ORDERED: propofoL 200 MG/20 ML VIAL IV ONE (07:49)
[2019-08-16] MEDS ORDERED: FENTANYL CITR 100 MCG/2 ML ONE (07:49)
[2019-08-16] MEDS ORDERED: ROCURONIUM 50 MG/5 ML VIAL IV ONE (07:50)
[2019-08-16] MEDS ORDERED: ONDANSETRON 4 MG/2 ML VIAL ONE (07:50)
--- NOTE | 2019-08-16 09:21 | CON ---
Date of Consultation: 08/16/[address] The patient admitted to Dr. Acevedo on 08/15/2019. I saw the patient on 08/16/2019. Reason For Consultation: Cardiac clearance for possible cholecystectomy by Dr. Woods. History Of Present Illness: The patient is a 79-year-old woman, has had a history of hypertension, dyslipidemia, coronary artery disease, neuropathy, and gastroesophageal reflux disease. She came in with acute kidney injury. Creatinine of 3.26 that has improved to 1.35. She had a i te count of 12,000, now it is 8. Her potassium was 3.1, it was supplemented to 3.5. Her chest x-ray was negative. BNP was 986. She has an EKG, showed right bundle-branch block. No cardiac symptoms reported. Was found to have acute cholecystitis. She is being hydrated and being treated with antib iotics. Losartan was held because of renal insufficiency. Nephrology is following. No cardiac symp toms. No clinical evidence of CHF or CAD. Has not had any chest pain for years. Allergies: NONE. Review of Systems: Negative. Social History: Negative. Family History: Noncontributory. Medications: Coreg, Zocor, losartan, Ultram, Prilosec, Lyrica, Zantac, and nitroglycerin p.r.n. Physical Examination: General: She was in no acute distress. Sinus rhythm. Vital Signs: Stable. Afebrile. HEENT: Negative. Neck: Supple with no bruit. Chest: Clear to auscultation and percussion. Cardiac: Revealed a regular rhythm and rate. No murmurs, gallops, or rubs. Abdomen: Benign. Extremities: Revealed no clubbing, cyanosis, or edema. Diagnostic Data: As stated earlier. Impression And Plan: Ms. Waters had come in with acute cholecystitis, acute kidney injury that has improved dramatically with hydration, antibiotics, and holding the losartan. I agree with Nephro logy assessment and plans. The patient has had a history of coronary artery disease, but has not had pain for over a year. Does not take any nitroglycerin. Her EKG revealed right bundle branch block, which is chronic. Her chest x-ray is negative. She is not having chest pain. She has no clinical evidence of congestive heart failure or coronary artery disease. I think she is at low risk for rey operative mortality. Her other problems include hypertension, dyslipidemia, neuropathy, and reflux s eems to be stable. I will leave her treatment of acute cholecystitis to the discretion of Dr. Son duron, but I will be around for questions if the need arises. REN/GIL Voice ID: [id number] Report ID: [id number]
--- NOTE | 2019-08-16 09:46 | P.PN ---
Subjective Date of Service: 08/16/19 Chief Complaint: Abdominal pain Subjective: Improving Patient seen and examined chart reviewed and case discussed with RN. Patient states her nausea vomiting is better. Pain is still present however controlled with medications. Possible cholecystectomy today. Review of Systems 10-point ROS is otherwise unremarkable Physical Examination - Vital Signs Temperature: 98.3 F Blood Pressure: 145/68 Pulse: 81 Respirations: 19 Pulse Ox (%): 99 - Physical Exam General: Alert, Oriented x3, Mild distress, Obese, Other (Elderly female) HEENT: Atraumatic, PERRLA, EOMI Neck: Supple, JVD not distended Respiratory: Clear to auscultation bilaterally, Normal air movement Cardiovascular: No edema, Normal pulses, Regular rate/rhythm, Normal S1 S2 Gastrointestinal: Normal bowel sounds, Soft and benign, No rebound, No guarding , Tenderness Musculoskeletal: No tenderness Integumentary: No rashes, No erythema Neurological: Normal speech, Normal tone, Cranial nerves 3-12 intact, Normal affect - Studies Laboratory Data (last 24 hrs) 08/15/19 07:55: WBC 12.5 H, Hgb 11.8 L, Hct 36.6, Plt Count 113 L Microbiology Data (last 24 hrs): urine culture shows no growth Medications List Reviewed: Yes Assessment And Plan - Plan Ms. Waters is 79 y/o female w abd pain. #Acute cholecystitis- CT & US of abdomen reviewed shows acute cholecystitis - leukocytosis. Hypotensive. Patient's WBC count trending down. Blood pressure has improved -IV zosyn; IV fluid -pain control, antiemetics. Maintain npo -DW surgeon. Plan for lap albertina in a.m. #CLAU- improving. Creatinine trending down. Will continue monitor -pt denies any prior h/o kidney disease. On ARB at home. suspect Prerenal-> ATN - Urinalysis, negative -IV hydration. Avoid nephrotoxins and trend cr -CT with no evidence of post obstructive uropathy -IV hydration. Monitor urine output. oliguric. -Travel Rn on board #Hypokalemia- replace. #Hyperglycemia- denies h/o diabetes. hgba1c 6%. Prediabetic. Counseled #CAD- on ARB and BB at home, will hold due to hypotension and renal failure. - Monitor closely. - Aspirin. Appreciate cardiology input # HL- resume statin. # Obesity BMI 31. Counseled DVT ppx- SCD Patient is full code. Possible surgery today Discharge Plan: Home Plan to discharge in: 24 Hours - Code Status/Comfort Care Code Status Assessed: Yes
[2019-08-16] MEDS ORDERED: NS 0.9% VIAL 30 ML ONE (09:50)
[2019-08-16] MEDS ORDERED: Phenylephrine HCl 10 MG/ML 1 ML VIAL ONE (09:51)
[2019-08-16] MEDS ORDERED: NA CHLORIDE 0.9% 1,000 ML ONE ×3 (09:53→14:23)
[2019-08-16] MEDS ORDERED: GLYCOPYRROLATE 0.2 MG/ML SYR ONE ×2 (10:41→11:05)
[2019-08-16] MEDS ORDERED: NEOSTIGMINE 1 MG/ML -5 ML ONE (10:55)
--- NOTE | 2019-08-16 10:58 | P.BOP ---
Preoperative diagnosis: acute cholecystitis, symptomatic cholelithiasis, intractable abdominal pain Postoperative diagnosis: same, gangrenous gallbladder Primary procedure: Laparoscopic cholecystectomy Cmm Inspector: RADHA TELLEZ (STEREOTYPER HELPER) Estimated blood loss: <50cc Specimen: gb Findings: gangrenous gallbladder Anesthesia: General Drain(s): DEE drain Transferred to: Recovery Room Condition: Good
[2019-08-16] MEDS ORDERED: NALOXONE HCL 2 MG/2 ML VIAL ONE (11:47)
[2019-08-16] MEDS ORDERED: NALOXONE 0.4 MG/ML VIAL ONE (11:48)
[2019-08-16] MEDS ORDERED: POTASSIUM CL 40 MEQ in NA CHLORIDE 0.9% 500 ML IV SCH (12:00)
--- NOTE | 2019-08-16 13:07 | RAD REPORT ---
EXAM DESCRIPTION: CT - Head Brain Wo Cont - 08/16/2019 12:58 pm CLINICAL HISTORY: unresponsive post surgery, transient alteration of awareness COMPARISON: Head Brain Wo Cont dated 06/23/2019 TECHNIQUE: Axial 5 mm thick images of the head were obtained without IV contrast. All CT scans are performed using dose optimization technique as appropriate and may include automated exposure control or mA/KV adjustment according to patient size. FINDINGS: No intracranial hemorrhage, mass or edema. No cortical edema or sulcal effacement. No anox ic brain injury findings. No acute cortical based infarction. No abnormal extra-axial fluid collectio ns. Ventricles are normal. Mastoid air cells and visualized portions of the paranasal sinuses are clear. No acute bony findings. IMPRESSION: No anoxic brain injury findings. No mass, edema or acute intracranial finding. Exam is not substantially different from the June 23 study.
--- NOTE | 2019-08-16 13:12 | OP ---
Date of Procedure: 08/16/2019 Surgeon: Alfred Woods MD Chute Greaser: YUMIKO Marshall Preoperative Diagnoses: Acute cholecystitis, symptomatic cholelithiasis, intractable abdominal pain, renal insufficiency. Postoperative Diagnoses: Acute cholecystitis, symptomatic cholelithiasis, intractable abdominal pain , renal insufficiency, gangrenous gallbladder. Procedure: Laparoscopic cholecystectomy. Estimated Blood Loss: Less than 50 mL. Specimen: Gallbladder. Findings: Gangrenous patches on the gallbladder area, gallbladder wall thickening, acute cholecystit is. Anesthesia: General plus local. Drains: DEE #10. Indications: This is a case of a 79-year-old patient, came few hours ago to the hospital with intrac table abdominal pain; came also with renal insufficiency. The medical doctor has been working for th e last few hours to optimize her treatment. Now, she is going for surgery with that she was explaine d to her laparoscopic possible open cholecystectomy with benefits, alternatives, and risks, including , but not limited to infection, bleeding, damage to adjacent structures, anesthesia complication, cho ledocholithiasis, bile leak, pancreatitis, [place], and even . She also understands this may not rel ieve any of her symptoms. She might need more than one surgical intervention, that was explained by me in Arabic and in [place]an. Description Of Procedure: The patient was brought to the operating room and placed in a position. A nesthesia was done without complication. Abdominal area was prepped and draped in sterile fashion. Marcaine 0.5% was injected for local anesthetic followed by sharp incision of the skin in the infraum bilical region. Incision was carried down to fascia, which was opened under direct vision. Peritone um was encountered, opened under direct vision. Vicryl #1 placed inside the fascia. Rm trocar w as carefully introduced. No bleeding was obtained. I placed 3 more trocars, 5 mm each one of them, 1 in the epigastric area and 2 in the right upper quadrant using Seldinger technique, which consisted of local anesthetic, sharp incision of the skin, and introduction of the trocars under direct vision . This allowed me to put a grasper in the fundus of the gallbladder, but it was so tense that I have to deflate the gallbladder first, so I put an Endo needle under direct visualization and aspirate th e gallbladder. After that, I removed the needle under direct visualization, put a grasper in the fun dus of the gallbladder, another grasper in the infundibulum, retracted the gallbladder in the inferol ateral fashion exposing the triangle of Calot, obtaining critical view. The cystic duct and cystic a rtery were clearly isolated, freed circumferentially, and a connection between those and the gallblad luis was clearly identified. I proceeded to ligate those by using at least 3 clips proximal, 1 clip d istal, distal ligation in middle. Same was done with the cystic artery. No bile leak. No bleeding. The gallbladder was removed from liver using Bovie cauterizer and removed from abdominal cavity usi ng an EndoCatch through the umbilical incision. This gallbladder shows signs of gangrene with multip le patches of gangrene, so I left a DEE drain in the area, exiting through one of the trocar sites, se cured in place with 3-0 nylon after profuse irrigation of the area. The jae looked intact. No b ile leak. No bleeding. At that moment, I proceeded to remove the trocars under direct vision, defla tristan the pneumoperitoneum, closed the fascia with #1 Vicryl. Irrigated the subcutaneous tissue, close d that with 3-0 chromic, and skin with jae. Sponge count and instrument counts were correct. Jordon mccann tolerated the procedure well. Patient was sent to Recovery in stable condition. BLANCO/GIL Voice ID: [id number] Report ID: [id number]
[2019-08-16] MEDS ORDERED: SODIUM BICARB 50 MEQ/50ML VIAL ONE (13:24)
[2019-08-16 13:39] LABS: Arterial Blood Carboxyhemoglob 0.7 % (0-1.5); Blood Gas Oxyhemoglobin 94.7 % (94-97); Blood O2 Saturation 96.2 % (92-98.5)
[2019-08-16] MEDS ORDERED: NACHLORIDE 0.45% 1,000 ML with NA BICARB 8.4% 100 MEQ IV SCH ×2 (14:00)
[2019-08-16 14:04] LABS: Potassium 3.8 mmol/L (3.5-5.1)
[2019-08-16] MEDS ORDERED: HALOPERIDOL LACT 5 MG/ML INJ IV PRN (14:18)
[2019-08-16] MEDS ORDERED: NA CHLORIDE 0.9% 250 ML IV PRN (14:18)
[2019-08-16] MEDS ORDERED: FENTANYL CITR 100 MCG/2 ML IV PRN (14:18)
[2019-08-16] MEDS ORDERED: propofoL 1,000 MG/100 ML VIAL IV PRN (14:18)
[2019-08-16] MEDS ORDERED: MIDAZOLAM HCL 2 MG/2 ML INJ IV PRN (14:18)
[2019-08-16] MEDS: PIPER/TAZO/NS 2.25gm 2.25 GM/50 ML BAG IV SCH ×3 (14:23→23:42)
--- NOTE | 2019-08-16 14:25 | PN ---
Date of Progress Note: 08/16/2019 Subjective: Patient was admitted with cholecystitis. Patient undergoes surgery today. After surger y, difficulty to extubate, not awake. CT was done, was negative for intracranial hemorrhage. Physical Examination: Vital Signs: When I saw the patient on the recovery, blood pressure 92/50, pulse of 88. Chest: Clear to auscultation. Heart: S1, S2. Regular. Abdomen: Tenderness. Extremities: No edema. Neuro: Response to pain and simple command. Moves 4 extremities without any focal. Pupils reactive . Laboratory Data: Sodium 145, potassium 3.5, bicarb 21, BUN 36, creatinine 1.3, calcium 8.2, H and H 11.1/33.9. Current Medications: The patient on Zosyn, atorvastatin, Lyrica, Zofran, ranitidine. Assessment And Plan: 1.Acute kidney injury secondary to toxic acute tubular necrosis, obstructive uropathy has been ruled out on the recovery phase with severe acidosis look by the ABG. Hypercapnic respiratory acidosis wi th severe metabolic acidosis. I am going to bolus the patient with 1 L, then maintain her on IV flui ds 100 per hour. 2.Acidosis, multifactorial. Hypercapnic respiratory failure, secondary to hypoventilation superimpo sed with acidosis, secondary to sepsis, secondary to poor perfusion, secondary to low blood pressure. I am going to bolus the patient with normal saline, then maintain her on half-normal with 1.5 amp o f bicarb on a 100 per hour. We will send for chemistry to confirm the acidosis and electrolyte and w e will follow up. 3.Hypertension, currently low blood pressure. Hold all blood pressure medication. 4.Septic shock, secondary to gangrenous cholecystitis. We will follow up with the primary. Continu e current antibiotic. 5.Hypercapnic respiratory failure as by Pulmonary. 6.Hypokalemia. We will supplement after followup laboratories. LISSETTE/GIL Voice ID: [id number] Report ID: [id number]
[2019-08-16] MEDS ORDERED: NA CHLORIDE 0.9% 1,000 ML IV SCH (15:00)
[2019-08-16] MEDS ORDERED: D5W 1,000 ML with NA BICARB 8.4% 100 MEQ IV SCH ×2 (17:00)
[2019-08-16 17:08] LABS: Arterial Blood Carboxyhemoglob 0.9 % (0-1.5); Blood Gas Oxyhemoglobin 97.8 % (94-97); Blood O2 Saturation 99.5 % (92-98.5)
[2019-08-16] MEDS ORDERED: MIDAZOLAM HCL 2 MG/2 ML INJ ONE (17:44)
[2019-08-16 18:16] LABS: Urine Protein/Creatinine Ratio 1.69 ratio (<0.15)
--- NOTE | 2019-08-16 19:09 | CON ---
Consultation done over phone with treating physician, Dr. Valderrama in an effort to reduce the risk of exposure to nieves virus and as recommended by CDC and hospital policy. History Of Present Illness: The patient is a 79-year-old who had acute cholecystitis, intractable ab dominal pain, and renal insufficiency, had surgery done on the 14 of August, where there was a lapar oscopic cholecystectomy. Following surgery, the patient was very slow to recover and did not respond . Her blood work revealed a slightly elevated white count of 12.5 with neutrophils of 90%. However, her arterial blood gas did show a severe acidosis with pH 7.16 and elevated pCO2 of 54.7. The patie nt was actually intubated and still ventilated. She had acute renal insufficiency with acute renal f ailure with creatinine elevated at 3.26 and lactic acid did remain normal and her electrolyte panel e ssentially was unremarkable. She had a head CT scan which showed no acute ischemic or hemorrhagic ch anges and the study was compared to a CT scan done on June 23 of this year and it was not found to be substantially different in any way. Dr. Valderrama did indicate the patient did not appear to hav e any obvious focal [id number] differences with only subtle movements observed in the arms and legs . No obvious facial asymmetry was reported on the patient. Later in the day, the patient did seem t o be a little more responsive; however, the patient did fail a trial at extubation. Past Medical History: Dyslipidemia, hypertension, myocardial infarction. Allergies: NO KNOWN DRUG ALLERGIES. Home Medications: Amitiza 24 mcg daily, aspirin 81 mg daily, carvedilol 12.5 mg daily, losartan 100 mg daily, Lyrica daily, omeprazole 40 mg daily, ranitidine 150 mg daily, simvastatin 40 mg daily. Surgical History: None. Family History: Noncontributory. Social History: No alcohol, tobacco, or IV drug use. Review of Systems: Not possible. Patient intubated and is not seen directly [id number]. Physical Examination: Vital Signs: Ranged systolic 115-130/45-79, Neurologic: As noted in the report from Dr. Lavelle price the patient is very poorly responsive, but appears symmetrically, although very subtle movements in the extremities and not able to maintain respirations independently. Most Recent Laboratory Studies: Sodium 147, potassium 3.8, chloride 118, carbon dioxide 21, BUN 32, creatinine 1.18 down from 3.26, glucose 139, calcium 7.9, magnesium 2.0. Most recent arterial blood gas done today shows improvement of pH to 7.43 from 7.16. The CO2 down to 24.7, PO2 to 189. Her [facility] te blood cell count is now 8.9, down from 12.5, and neutrophils 84.7 down from 90.9. Assessment: Ms. Waters is a 79-year-old patient who likely had an episode of marked respiratory failure with metabolic acidosis and likely sepsis from bacterial infection involving gallbladder. S he does have a significant metabolic and toxic encephalopathy as a result. The head CT scan showed n o acute ischemic or hemorrhagic changes when that was compared to a scan from the 6th, which was unch anged. She did not get an EEG as she started to show some responsiveness. The patient is likely to recover perhaps in the next 2 to 4 days. However, it is difficult to tell exactly the level of cogni tive functioning that the patient would have compared to what she did previously. Perhaps if able to stable enough, MRI of the brain may shed more insight into the possibility of any brainstem or hippo campal areas of damage. However, it is again unlikely given the CT scan showing [facility]. Plan: The patient should continue with supportive care as indicated. Aggressive oxygenation and lis tilation may obviously continue with intravenous antibiotics. Currently on Zosyn 2.25 mg every 6 marva rs. May continue with DVT prophylaxis as appropriate. Continue with Lipitor to address stroke risk and may reconsider EEG and again brain MRI if the patient is more able to withstand those studies and in particular with the EEG, if the patient is off any sedating medications or antipsychotic medicati ons, and may give a more reliable look at the brain function. This case was discussed with Dr. Valderrama, treating physician. ZAC/GIL Voice ID: [id number] Report ID: [id number]
[2019-08-16] MEDS: ATORVASTATIN 20 MG TAB PO SCH (21:00)
[2019-08-16] MEDS: RANITIDINE 150 MG TABLET PO SCH (21:00)
[2019-08-16] MEDS: LORazepam 2 MG/ML VIAL IV PRN (22:42)
[2019-08-17] MEDS: LORazepam 2 MG/ML VIAL IV PRN (04:26)
[2019-08-17 05:06] LABS: Absolute Lymphocytes (CBC) 0.7 K/uL (0.7-4.9); Basophils % 0.2 % (0-1.3); Lymphocytes % 10.7 % (15.3-44.8); MPV 10.6 fL (7.6-11.3)
[2019-08-17] MEDS: PIPER/TAZO/NS 2.25gm 2.25 GM/50 ML BAG IV SCH (05:26)
[2019-08-17 05:38] LABS: Albumin 1.9 g/dL (3.4-5.0); Bilirubin Total 0.4 mg/dL (0.2-1.0); Phosphorus 2.5 mg/dL (2.5-4.9); Potassium 3.7 mmol/L (3.5-5.1); Thyroid Stimulating Hormone 0.945 uIU/mL (0.360-3.740)
[2019-08-17 05:46] VITALS: BMI 29.7
[2019-08-17] MEDS: NA CHLORIDE 0.9% 1,000 ML IV SCH (06:00)
[2019-08-17 08:10] LABS: Arterial Blood Carboxyhemoglob 0.8 % (0-1.5); Blood Gas Oxyhemoglobin 96.5 % (94-97); Blood O2 Saturation 98.2 % (92-98.5)
--- NOTE | 2019-08-17 08:57 | P.PN ---
Subjective Date of Service: 08/17/19 Chief Complaint: Abdominal pain Patient seen and examined chart reviewed and case discussed with RN. Patient had developed hypotensive shock after surgery had to be reintubated unclear on the ventilator. Was acidotic. Currently in the ICU. Review of Systems is unable to be obtained Physical Examination - Vital Signs Temperature: 97.8 F Blood Pressure: 146/61 Pulse: 63 Respirations: 14 Pulse Ox (%): 100 - Physical Exam General: Alert HEENT: Atraumatic, PERRLA, EOMI Neck: Supple Respiratory: Normal air movement, Diminished Cardiovascular: No edema, Normal pulses, Regular rate/rhythm, Normal S1 S2 Gastrointestinal: Normal bowel sounds, Soft and benign, Non-distended, Tenderness Integumentary: No rashes Neurological: Normal strength at 5/5 x4 extr, Normal tone - Studies Laboratory Tests 08/15/19 08/15/19 08/15/19 07:55 07:55 07:55 WBC 12.5 H RBC 4.46 Hgb 11.8 L Hct 36.6 MCV 82.0 D MCH 26.5 L D MCHC 32.3 RDW 14.2 Plt Count 113 L MPV 11.4 H Neutrophils % 90.9 H Lymphocytes % 4.3 L Monocytes % 4.3 Eosinophils % 0.2 Basophils % 0.3 Absolute Neutrophils 11.3 H Absolute Lymphocytes 0.5 L Absolute Monocytes 0.5 Absolute Eosinophils 0.0 Absolute Basophils 0.0 Morphology Comment Not seen PT 14.2 H INR 1.21 Sodium 139 Potassium 3.1 L Chloride 106 Carbon Dioxide 23 BUN 48 H Creatinine 3.26 H Estimated GFR 14 L Glucose 202 H Calcium 8.5 Magnesium 2.0 Total Bilirubin 0.8 Direct Bilirubin 0.3 H AST 11 L ALT 13 Alkaline Phosphatase 104 Rapid Troponin I < 0.02 NT-Pro-B Natriuret Pep 986 H Serum Total Protein 6.4 Albumin 2.8 L Globulin 3.6 H Albumin/Globulin Ratio 0.8 L Lipase 47 L Medications List Reviewed: Yes Assessment And Plan - Plan Ms. Waters is 79 y/o female w abd pain. # Septic shock. Patient's blood pressure now significantly improved with IV fluids. Will continue with broad-spectrum IV antibiotics. Secondary to gangrenous cholecystitis. # Acute respiratory failure with hypercapnia. Will continue to wean patient off the ventilator. [employer] been consulted. Likely secondary to acidosis and hypotension, shock. Repeat ABG # metabolic acidosis. Multi factorial. Improving. Patient was placed on bicarb drip. Appreciate neurology input #Acute gangrenous cholecystitis- CT & US of abdomen reviewed shows acute cholecystitis - leukocytosis. Hypotensive. Patient's WBC count trending down. Blood pressure has improved -IV zosyn; IV fluid -patient now status post laparoscopic cholecystectomy. #CLAU- improving. Creatinine trending down. Will continue monitor -pt denies any prior h/o kidney disease. On ARB at home. suspect Prerenal-> ATN - Urinalysis, negative -IV hydration. Avoid nephrotoxins and trend cr -CT with no evidence of post obstructive uropathy -IV hydration. Monitor urine output. oliguric. -Director Of Content And Programming on board #Hypokalemia- replace. #Hyperglycemia- denies h/o diabetes. hgba1c 6%. Prediabetic. Counseled #CAD- on ARB and BB at home, will hold due to hypotension and renal failure. - Monitor closely. - Aspirin. Appreciate cardiology input # HL- resume statin. # Obesity BMI 31. Counseled DVT ppx- SCD Patient is full code. Possible surgery today
[2019-08-17] MEDS ORDERED: FAMOTIDINE 20 MG/2 ML VIAL IV SCH (09:00)
[2019-08-17] MEDS: PREGABALIN 50 MG CAP PO SCH ×2 (10:21→20:07)
[2019-08-17] MEDS: D5.45NS W/KCL 40MEQ 40 MEQ/1,000 ML BAG IV SCH (10:21)
--- NOTE | 2019-08-17 11:05 | PN ---
Date of Progress Note: 08/17/2019 Subjective: Patient is status post surgery for necrotizing cholecystitis. Patient had difficulty wa sariah up yesterday. Physical Examination: Vital Signs: Blood pressure 146/61, pulse of 63, afebrile. The patient had good urine output of 400 , positive balance of 2500. Chest: Clear to auscultation. Heart: S1, S2. Regular. Abdomen: Soft, nontender. Extremities: Trace edema. Laboratory Data: WBC 6.9, H and H 10.5/33, platelets 103. Sodium 149, potassium 3.7, bicarb 20, chl oride 121, BUN 25, creatinine 0.9, calcium of 8, magnesium of 2, phosphorus 2.5. Current Medications: The patient on include normal saline 125, Zosyn, atorvastatin, Pepcid, ranitidi ne, fentanyl. Assessment And Plan: 1.Acute kidney injury secondary to prerenal, recovered, resolved. 2.Acidosis secondary to hypoperfusion, resolved. 3.Shock secondary to significant gastrointestinal loss, recovered, resolved. 4.Hyperchloremia secondary to contraction alkalosis. I going to go ahead and change intravenous flu id from normal saline to D5 half, decrease the rate to 75, and we will follow up. 5.Hypertension, currently blood pressure on the lower side. Keep holding all blood pressure medicat ion, decrease intravenous fluid. 6.Necrotizing cholecystitis, status post surgery. We will follow up with Surgery and Primary. Cont inue Zosyn for the time being given the recovery of the kidney function. I am going to adjust the do se. Case discussed with the staff, discussed with Primary, agreed on the plan. JAMARCUS Voice ID: [id number] Report ID: [id number]
--- NOTE | 2019-08-17 12:18 | P.CNS ---
Date of Consult: 08/17/19 Chief Complaint: Respiratory failure History of Present Illness: Patient is 79 years of age underwent a cholecystectomy for gangrenous gallbladder was left on a ventilator self-extubated this morning she is alert responsive cooperative little confused patient is hypernatremic renal function has improved patient was septic on admission Allergies No Known Allergies Allergy (Unverified 08/15/19 10:50) Home Medications: Carvedilol [Coreg] 12.5 mg PO BID 08/15/19 Losartan Potassium 100 mg PO DAILY 08/15/19 Nitroglycerin 1 tab SL DAILY PRN 08/15/19 Omeprazole [Prilosec] 40 mg PO DAILY 08/15/19 Pregabalin [Lyrica] 100 mg PO BID 08/15/19 Ranitidine [Zantac*] 150 mg PO BEDTIME 08/15/19 Simvastatin [Zocor] 40 mg PO BEDTIME 08/15/19 Tramadol HCl [Ultram] 50 mg PO Q6H PRN 08/15/19 - Past Medical/Surgical History Diabetic: No -: Hypertension -: Hyperlipidemia -: CAD -: RA -: Bilateral breast lumpectomy - Social History Alcohol use: No CD- Drugs: No Caffeine use: No Place of Residence: Home Review of Systems is unable to be obtained Physical Examination Temp Pulse Resp BP Pulse Ox 97.8 F 81 24 H 160/69 H 100 08/17/19 09:08 08/17/19 10:00 08/17/19 10:00 08/17/19 10:00 08/17/19 10:00 General: Alert, Delirious Respiratory: Clear to auscultation bilaterally Cardiovascular: No edema, Regular rate/rhythm - Problems (1) Respiratory failure Current Visit: Yes Status: Acute Plan: Patient is status postcholecystectomy as left on a ventilator renal function is improved is now hypernatremic mildly anemic white count normal vital signs satisfactory patient is on Zosyn continue with D5 Alejandro normal saline blood pressure a little elevated patient was on losartan and Coreg at home chest x- rays clear Qualifiers: Chronicity: acute
[2019-08-17] MEDS: PIPER/TAZO/NS 3.375gm 3.375 GM/100 ML BAG IVPB SCH (16:23)
--- NOTE | 2019-08-17 18:41 | PN ---
Date of Progress Note: 08/17/2019 Subjective: Status post laparoscopic cholecystectomy for a gangrenous gallbladder. Patient recently was extubated. She is more alert and awake. Review of Systems: Unable to be obtained. Physical Examination: Abdomen: Looks benign. DEE drain, serosanguineous. Blood work was reviewed. Plan: Physical therapy, ambulation. Clear liquid diet. Incentive spirometry. Continue the antibio tics, DEE drain. DVT prophylaxis. HM/MODL Voice ID: [id number] Report ID: [id number]
--- NOTE | 2019-08-17 19:50 | PN ---
I had seen the patient for cardiac clearance on 08/15/2019 because of history of coronary artery dise ase, hypertension, and dyslipidemia. Patient has also had a history of rheumatoid arthritis and bila teral breast lumpectomy. She was admitted with cholecystitis and sepsis, was found to have a gangren ous gallbladder after laparoscopic cholecystectomy, which was done today. She is in the ICU after sh e self-extubated herself. She is alert, responsive, cooperative, slightly confused. Renal function has improved. She is hypernatremic. She is being hydrated. No cardiac arrhythmia. No clinical jovan dence of congestive heart failure. No chest pain reported. We will continue to follow her. REN/GIL Voice ID: [id number] Report ID: [id number]
[2019-08-17] MEDS: ATORVASTATIN 20 MG TAB PO SCH (20:07)
[2019-08-18] MEDS: PIPER/TAZO/NS 3.375gm 3.375 GM/100 ML BAG IVPB SCH ×3 (00:36→17:41)
[2019-08-18] MEDS: D5.45NS W/KCL 40MEQ 40 MEQ/1,000 ML BAG IV SCH (03:00)
[2019-08-18 04:29] LABS: Absolute Lymphocytes (CBC) 1.3 K/uL (0.7-4.9); Basophils % 0.8 % (0-1.3); Hematocrit 33.1 % (36.0-45.0); Lymphocytes % 23.4 % (15.3-44.8); MPV 10.6 fL (7.6-11.3)
[2019-08-18 04:41] LABS: Albumin 1.8 g/dL (3.4-5.0); Magnesium 1.8 mg/dL (1.8-2.4); Phosphorus 2.1 mg/dL (2.5-4.9); Potassium 3.5 mmol/L (3.5-5.1)
[2019-08-18 05:00] LABS: Blood Morphology Comment NOT SEEN (NOT SEEN); Platelet Estimate ADEQ
[2019-08-18] MEDS ORDERED: MAGNESIUM SULFATE 1 gm IVPB 1 GM/100 ML BAG IV ONE (05:45)
[2019-08-18] MEDS: PREGABALIN 50 MG CAP PO SCH ×2 (09:20→20:56)
[2019-08-18] MEDS ORDERED: POTASSIUM PHOS IN 0.9 % NACL 15 MMOL/250 ML BAG IV ONE (11:11)
--- NOTE | 2019-08-18 11:42 | PN ---
Date of Progress Note: 08/18/2019 Subjective: Patient was admitted with necrotizing cholecystitis. Patient wants to undergo surgery, developed hypertension. After fluid resuscitation, patient recovered. Acute kidney injury has been recovered significantly. Objective: Vital Signs: Blood pressure 132/60, pulse of 78, afebrile. Vital Signs: Patient had good urine output of 1400. Chest: Decreased entry bilateral base. Heart: S1-S2 regular. Abdomen: Soft, mild tenderness on the right upper quadrant. Extremities: No edema. Neurologic: Alert. No focal. Laboratory Data: WBC 5.4, H and H 10.4/33.1, platelet 108. Sodium 147, potassium 3.5, bicarb 23, BU N 15, creatinine 0.7, calcium 8, phosphor 2.1, magnesium 1.8, albumin 1.8. Current Medications: Zosyn, atorvastatin, Lyrica, Zofran, IV fluid, D5 half. Assessment And Plan: 1.Acute kidney injury secondary to prerenal, recovered, resolved. 2.Hypokalemia, hypomagnesemia, and hypophosphatemia secondary to poor intake. I am going to supplem ent. 3.Anemia secondary to blood loss, stable. 4.Cholecystitis. We just adjusted the Zosyn yesterday, doing well. We will follow up. 5.Hypertension, controlled. We will follow. I am going to go ahead and start on low dose of amlodipine. LISSETTE/GIL Voice ID: [id number] Report ID: [id number]
[2019-08-18] MEDS: HYDROCODONE/APAP 5/325 MG TAB PO PRN ×2 (12:02→21:45)
--- NOTE | 2019-08-18 13:45 | PN ---
Date of Progress Note: 08/18/2019 The patient has been followed by me because of a history of coronary artery disease, hypertension, an d dyslipidemia. She was cleared for cholecystectomy. Yesterday, she underwent cholecystectomy and w as found to have a gangrenous gallbladder. Overnight, she had no chest pains, no arrhythmia, no clin ical evidence of congestive heart failure. Patient continued to be treated for sepsis. She remains confused, has no cardiac complaint. Her vital signs have been stable. We will sign off her case. W e will continue to follow as needed. REN/GIL Voice ID: [id number] Report ID: [id number]
--- NOTE | 2019-08-18 14:09 | P.PN ---
Subjective Date of Service: 08/18/19 Chief Complaint: Respiratory failure Subjective: Improving Patient seen and examined chart reviewed and case discussed with RN and Dr. Hartman. Patient is somewhat confused however following commands much more awake and alert than yesterday. Denies any significant abdominal pain Review of Systems 10-point ROS is otherwise unremarkable Gastrointestinal: As per HPI Physical Examination - Vital Signs Temperature: 98.0 F Blood Pressure: 165/72 Pulse: 68 Respirations: 18 Pulse Ox (%): 98 - Physical Exam General: Alert, In no apparent distress, Oriented x2, Other (Elderly ill- appearing female) HEENT: Atraumatic, PERRLA, EOMI Neck: Supple, JVD not distended Respiratory: Clear to auscultation bilaterally, Normal air movement Cardiovascular: No edema, Normal pulses, Regular rate/rhythm, Normal S1 S2 Gastrointestinal: Normal bowel sounds, Soft and benign, Non-distended, Other ( DEE drain in place), Tenderness (Near incision site) Musculoskeletal: No tenderness Integumentary: No rashes Neurological: Normal speech, Normal strength at 5/5 x4 extr, Normal tone, Normal affect - Studies Laboratory Tests 08/15/19 08/15/19 08/15/19 07:55 07:55 07:55 WBC 12.5 H RBC 4.46 Hgb 11.8 L Hct 36.6 MCV 82.0 D MCH 26.5 L D MCHC 32.3 RDW 14.2 Plt Count 113 L MPV 11.4 H Neutrophils % 90.9 H Lymphocytes % 4.3 L Monocytes % 4.3 Eosinophils % 0.2 Basophils % 0.3 Absolute Neutrophils 11.3 H Absolute Lymphocytes 0.5 L Absolute Monocytes 0.5 Absolute Eosinophils 0.0 Absolute Basophils 0.0 Morphology Comment Not seen PT 14.2 H INR 1.21 Sodium 139 Potassium 3.1 L Chloride 106 Carbon Dioxide 23 BUN 48 H Creatinine 3.26 H Estimated GFR 14 L Glucose 202 H Calcium 8.5 Magnesium 2.0 Total Bilirubin 0.8 Direct Bilirubin 0.3 H AST 11 L ALT 13 Alkaline Phosphatase 104 Rapid Troponin I < 0.02 NT-Pro-B Natriuret Pep 986 H Serum Total Protein 6.4 Albumin 2.8 L Globulin 3.6 H Albumin/Globulin Ratio 0.8 L Lipase 47 L Medications List Reviewed: Yes Assessment And Plan - Plan Ms. Evelin is 79 y/o female w abd pain. # Septic shock. Patient's blood pressure now significantly improved with IV fluids. Will continue with broad-spectrum IV antibiotics. Secondary to gangrenous cholecystitis. White blood cell count normalized. # Acute respiratory failure with hypercapnia. Patient now off of ventilator. Resolved # metabolic acidosis. Multi factorial. Improving. Patient now off of bicarb drip #Acute gangrenous cholecystitis- CT & US of abdomen reviewed shows acute cholecystitis -IV zosyn; IV fluid -patient now status post laparoscopic cholecystectomy. -continue antibiotics # acute metabolic encephalopathy. Improving likely secondary to sepsis. Follow commands. #CLAU-normalized. Will continue monitor creatinine level -pt denies any prior h/o kidney disease. On ARB at home. suspect Prerenal-> ATN - Urinalysis, negative -IV hydration. Avoid nephrotoxins and trend cr -CT with no evidence of post obstructive uropathy -IV hydration. Monitor urine output. -Log Hauler on board #Hypokalemia- replace. Monitor #Hyperglycemia- denies h/o diabetes. hgba1c 6%. Prediabetic. Counseled #CAD- on ARB and BB at home, will hold due to renal failure. - Monitor closely. - Aspirin. Appreciate cardiology input # HL- resume statin. # Obesity BMI 31. Counseled DVT ppx- Lovenox Patient is full code. Likely Dc in the next 24 to 48 hr depending on clinical improvement
[2019-08-18] MEDS: ENOXAPARIN 40 MG/0.4 ML SQ SCH (17:40)
[2019-08-18] MEDS: ATORVASTATIN 20 MG TAB PO SCH (20:56)
[2019-08-19] MEDS: PIPER/TAZO/NS 3.375gm 3.375 GM/100 ML BAG IVPB SCH ×3 (01:09→16:56)
[2019-08-19 06:14] LABS: Albumin 1.9 g/dL (3.4-5.0); BUN Blood Urea Nitrogen 10 mg/dL (7-18); Bicarbonate 25 mmol/L (21-32); Glucose Level 88 mg/dL (74-106); Magnesium 1.8 mg/dL (1.8-2.4); Potassium 3.6 mmol/L (3.5-5.1); Sodium Level 146 mmol/L (136-145)
[2019-08-19 06:20] LABS: Absolute Lymphocytes (CBC) 1.3 K/uL (0.7-4.9); Basophils % 0.9 % (0-1.3); Hematocrit 36.6 % (36.0-45.0); Lymphocytes % 23.1 % (15.3-44.8); MPV 10.6 fL (7.6-11.3); RBC Red Blood Cell Count 4.44 M/uL (3.86-4.86)
[2019-08-19] MEDS: PREGABALIN 50 MG CAP PO SCH ×2 (09:25→20:11)
[2019-08-19] MEDS: AMLODIPINE 5 MG TAB PO SCH (09:25)
--- NOTE | 2019-08-19 10:59 | P.PN ---
Subjective Date of Service: 08/19/19 Chief Complaint: Respiratory failure Subjective Pt admitted with acute cholecystisits, had Amber peak cr 3.2 today no overnigt events BP elevated , started on amlodipine participating in PT OT sodium elevated to 146, encouraged to increase fluid intake willl remove rivera and trial of void Physical exam general: Awake and alert, NAD , obese Neck; Supple, No elevated JVD hear: RRR, normal S1,2 no murmur or rub Chest: CTAB, no rlaes or wheezes Abdomen: Soft , Nt , rivera catheter Extremities No edema or ulcer AMBER due to prerenal azotemia resolved Acute gangrenous cholecystisitis S/P surgical intervention HAGMA resolved off sodium bicarb HTN started on Amlodipine mild hypernatremia encouraged to increase water intake total time spent 35 minutes Physical Examination - Vital Signs Temperature: 97.9 F Blood Pressure: 170/76 Pulse: 74 Respirations: 18 Pulse Ox (%): 99 - Studies Medications List Reviewed: Yes
--- NOTE | 2019-08-19 12:22 | P.PN ---
Subjective Date of Service: 08/19/19 Chief Complaint: Respiratory failure Subjective: Improving Patient seen and examined chart reviewed and case discussed with RN and Dr. Galvin. Patient has been working with physical therapy still somewhat confused but improving. Denies any significant pain Review of Systems 10-point ROS is otherwise unremarkable Gastrointestinal: As per HPI Physical Examination - Vital Signs Temperature: 97.9 F Blood Pressure: 170/76 Pulse: 74 Respirations: 18 Pulse Ox (%): 99 - Physical Exam General: Alert, In no apparent distress, Oriented x2, Confused, Other (Elderly female) HEENT: Atraumatic, PERRLA, EOMI Neck: Supple, JVD not distended Respiratory: Clear to auscultation bilaterally, Normal air movement Cardiovascular: No edema, Normal pulses, Regular rate/rhythm, Normal S1 S2 Gastrointestinal: Normal bowel sounds, Soft and benign, Non-distended, Other ( DEE drain in place), Tenderness (Around incision site) Musculoskeletal: No tenderness Integumentary: No rashes Neurological: Normal speech, Normal tone, Cranial nerves 3-12 intact, Normal affect - Studies Laboratory Last Values WBC 5.7 K/uL (4.3-10.9) 08/19/19 05:22 RBC 4.44 M/uL (3.86-4.86) 08/19/19 05:22 Hgb 11.9 g/dL (12.0-15.0) L 08/19/19 05:22 Hct 36.6 % (36.0-45.0) 08/19/19 05:22 MCV 82.3 fL (80-100) 08/19/19 05:22 MCH 26.7 pg (27.0-35.0) L 08/19/19 05:22 MCHC 32.5 g/dL (32.0-36.0) 08/19/19 05:22 RDW 14.6 % (12.1-15.2) 08/19/19 05:22 Plt Count 132 K/uL (152-406) L D 08/19/19 05:22 MPV 10.6 fL (7.6-11.3) 08/19/19 05:22 Neutrophils % 59.4 % (41.7-73.7) 08/19/19 05:22 Lymphocytes % 23.1 % (15.3-44.8) 08/19/19 05:22 Monocytes % 12.7 % (3.3-12.3) H 08/19/19 05:22 Eosinophils % 3.9 % (0-4.4) 08/19/19 05:22 Basophils % 0.9 % (0-1.3) 08/19/19 05:22 Absolute Neutrophils 3.4 K/uL (1.8-8.0) 08/19/19 05:22 Segmented Neutrophils 52 % (40-80) 08/18/19 04:13 Band Neutrophils 1 % (0-1) 08/18/19 04:13 Absolute Lymphocytes 1.3 K/uL (0.7-4.9) 08/19/19 05:22 Lymphocytes 36 % (15-42) 08/18/19 04:13 Monocytes 3 % (0-10) 08/18/19 04:13 Absolute Monocytes 0.7 K/uL (0.1-1.3) 08/19/19 05:22 Eosinophils 4 % (0-3) H 08/18/19 04:13 Absolute Eosinophils 0.2 K/uL (0-0.5) 08/19/19 05:22 Basophils 1 % (0-1) 08/18/19 04:13 Absolute Basophils 0.1 K/uL (0-0.5) 08/19/19 05:22 Reactive Lymphocytes 3 % 08/18/19 04:13 Morphology Comment Not seen (NOT SEEN) 08/18/19 04:13 PT 14.2 SECONDS (9.5-12.5) H 08/15/19 07:55 INR 1.21 08/15/19 07:55 pH 7.39 (7.35-7.45) 08/17/19 07:42 pCO2 32.2 mmHG (35-45) L 08/17/19 07:42 pO2 109.0 mmHG (75-100) H 08/17/19 07:42 HCO3 19.1 mmol/L (22-28) L 08/17/19 07:42 Base Excess -5.0 mmol/L 08/17/19 07:42 Oxyhemoglobin 96.5 % (94-97) 08/17/19 07:42 ABG O2 Sat (Measured) 98.2 % (92-98.5) 08/17/19 07:42 ABG Carboxyhemoglobin 0.8 % (0-1.5) 08/17/19 07:42 ABG Methemoglobin 0.9 % (0-1.5) 08/17/19 07:42 Other Total Hgb 9.9 g/dl (12-18) L 08/17/19 07:42 Inspired O2 30.0 % 08/17/19 07:42 Sodium 146 mmol/L (136-145) H 08/19/19 05:22 Potassium 3.6 mmol/L (3.5-5.1) 08/19/19 05:22 Chloride 117 mmol/L (98-107) H 08/19/19 05:22 Carbon Dioxide 25 mmol/L (21-32) 08/19/19 05:22 BUN 10 mg/dL (7-18) 08/19/19 05:22 Creatinine 0.62 mg/dL (0.55-1.3) 08/19/19 05:22 Estimated GFR > 90 mL/min (=/>90) 08/19/19 05:22 Glucose 88 mg/dL (74-106) 08/19/19 05:22 Hemoglobin A1c 6.0 % (4.2-6.3) 08/16/19 04:15 Lactic Acid 0.7 mmol/L (0.4-2.0) 08/15/19 13:34 Calcium 8.7 mg/dL (8.5-10.1) 08/19/19 05:22 Phosphorus 3.0 mg/dL (2.5-4.9) 08/19/19 05:22 Magnesium 1.8 mg/dL (1.8-2.4) 08/19/19 05:22 Total Bilirubin 0.4 mg/dL (0.2-1.0) 08/17/19 04:55 Direct Bilirubin 0.3 mg/dL (0-0.2) H 08/15/19 07:55 AST 59 U/L (15-37) H 08/17/19 04:55 ALT 42 U/L (12-78) 08/17/19 04:55 Alkaline Phosphatase 104 U/L (45-117) 08/17/19 04:55 Rapid Troponin I < 0.02 ng/mL (0.0-0.045) 08/15/19 07:55 NT-Pro-B Natriuret Pep 986 pg/mL (<450) H 08/15/19 07:55 Serum Total Protein 5.0 g/dL (6.4-8.2) L 08/17/19 04:55 Albumin 1.9 g/dL (3.4-5.0) L 08/19/19 05:22 Globulin 3.1 g/dL (2.3-3.5) 08/17/19 04:55 Albumin/Globulin Ratio 0.6 (1.1-1.8) L 08/17/19 04:55 Lipase 47 U/L (73-393) L 08/15/19 07:55 TSH 0.945 uIU/mL (0.360-3.740) 08/17/19 04:55 Urine Color Dk yellow 08/15/19 12:00 Urine Appearance Cloudy 08/15/19 12:00 Urine pH 5.0 (5.0-7.0) 08/15/19 12:00 Ur Specific [place] 1.025 (1.005-1.030) 08/15/19 12:00 Glucose (UA)(Auto) Negative (NEG) 08/15/19 12:00 Urine Ketones Trace (NEG) 08/15/19 12:00 Urine Blood Negative (NEG) 08/15/19 12:00 Urine Nitrite Negative (NEG) 08/15/19 12:00 Urine Bilirubin Negative (NEG) 08/15/19 12:00 Urine Urobilinogen 1.0 mg/dL (0.2-1.0) 08/15/19 12:00 Ur Leukocyte Esterase 2+ (NEG) H 08/15/19 12:00 Urine RBC <5 /HPF (NONE SEEN) 08/15/19 12:00 Urine WBC 10-20 /HPF (<5) H 08/15/19 12:00 Ur Squamous Epith Cells 10-20 /HPF (NONE SEEN) H 08/15/19 12:00 Urine Bacteria 20-50 /HPF (<20) H 08/15/19 12:00 Hyaline Casts 0-5 /LPF (NONE SEEN) 08/15/19 12:00 Coarse Granular Casts 0-5 /LPF (NONE SEEN) 08/15/19 12:00 Urine Mucus 1+ /HPF (NONE SEEN) 08/15/19 12:00 Urine Culture Reflexed Not needed 08/15/19 12:00 U Random Total Protein 66 mg/dL (<11.9) H 08/16/19 17:50 Ur Random Sodium 35 mmol/L (27-287) 08/15/19 12:00 Urine Creatinine 39.0 mg/dL (20-320) 08/16/19 17:50 Protein/Creatinin Ratio 1.69 ratio (<0.15) H 08/16/19 17:50 Urine Total Protein 1+ (NEG) H 08/15/19 12:00 Microbiology Data (last 24 hrs): Urine culture no growth Medications List Reviewed: Yes Assessment And Plan - Plan Ms. Waters is 79 y/o female w abd pain. # Septic shock. Patient's blood pressure now significantly improved with IV fluids. Will continue with broad-spectrum IV antibiotics. Secondary to gangrenous cholecystitis. White blood cell count normalized. # Acute respiratory failure with hypercapnia. Patient now off of ventilator. Resolved # metabolic acidosis. Multi factorial. Resolved. Patient now off of bicarb drip #Acute gangrenous cholecystitis- CT & US of abdomen reviewed shows acute cholecystitis -IV zosyn; IV fluid -patient now status post laparoscopic cholecystectomy. -continue antibiotics. -advance diet to a GI soft # acute metabolic encephalopathy. Improving likely secondary to sepsis. Follow commands. Confused to place only. Head CT scan negative. Appreciate neurology input. Likely related to sepsis and acute hypotension. #CLAU-normalized. Will continue monitor creatinine level -pt denies any prior h/o kidney disease. On ARB at home. suspect Prerenal-> ATN - Urinalysis, negative -IV hydration. Avoid nephrotoxins and trend cr -CT with no evidence of post obstructive uropathy -IV hydration. Monitor urine output. -Chemical Recovery Operator on board #Hypokalemia- replace. Monitor #Hyperglycemia- denies h/o diabetes. hgba1c 6%. Prediabetic. Counseled #CAD- continue home medication - Monitor closely. - Aspirin. Appreciate cardiology input # HL- resume statin. # Obesity BMI 31. Counseled DVT ppx- Lovenox Patient is full code. Discontinue Savage catheter. Patient working with physical therapy. Will need group home facility placement. Consulted Case management. Likely Dc in the next 24 hr once accepted to group home facility Discharge Plan: Jail
[2019-08-19] MEDS: ENOXAPARIN 40 MG/0.4 ML SQ SCH (16:55)
[2019-08-19] MEDS: ATORVASTATIN 20 MG TAB PO SCH (20:11)
[2019-08-19] MEDS: HYDROCODONE/APAP 5/325 MG TAB PO PRN (20:18)
[2019-08-20] MEDS: PIPER/TAZO/NS 3.375gm 3.375 GM/100 ML BAG IVPB SCH ×2 (01:19→08:34)
[2019-08-20 06:00] VITALS: O2SAT 98
[2019-08-20 06:24] LABS: Absolute Lymphocytes (CBC) 1.3 K/uL (0.7-4.9); Basophils % 0.5 % (0-1.3); Hematocrit 36.8 % (36.0-45.0); Lymphocytes % 17.8 % (15.3-44.8); MPV 10.2 fL (7.6-11.3); RBC Red Blood Cell Count 4.48 M/uL (3.86-4.86)
[2019-08-20 07:15] LABS: BUN Blood Urea Nitrogen 7 mg/dL (7-18); Bicarbonate 27 mmol/L (21-32); Glucose Level 92 mg/dL (74-106); Magnesium 1.7 mg/dL (1.8-2.4); Phosphorus 2.7 mg/dL (2.5-4.9); Potassium 3.2 mmol/L (3.5-5.1); Sodium Level 146 mmol/L (136-145)
[2019-08-20] MEDS: HYDROCODONE/APAP 5/325 MG TAB PO PRN (08:34)
[2019-08-20] MEDS: PREGABALIN 50 MG CAP PO SCH (08:35)
[2019-08-20] MEDS: AMLODIPINE 5 MG TAB PO SCH (08:35)
[2019-08-20] MEDS ORDERED: POTASSIUM CL SA 10 MEQ TAB PO ONE (12:00)
--- NOTE | 2019-08-20 12:07 | P.DS ---
Admission Date: 08/15/19 Discharge Date: 08/20/19 Disposition: ROUTINE DISCHARGE Discharge Condition: FAIR Reason for Admission: Respiratory failure Consultations: Dr. Woods surgery Dr. Matthews cardiology Dr. Hartman nephrology Dr. Alfaro neurology Procedures: Laparoscopic cholecystectomy Brief History of Present Illness: From H and P Ms. Waters is 79 y/o female with h/o HTN, HL who presented to the ER with c /o epigastric pain radiating to bilateral upper quadrants. pain started 3 days ago, remained constant, intensity increases to severe sometimes. Pain is associated with nausea, no vomiting and no fever. She describes pain as achy and colicky. In the ER, work up is consistent with acute cholecystitis and renal failure. She endorses poor po intake and decreased urine output. Hospital Course: Patient is a 79-year-old female with past medical history of heart disease hypertension hyperlipidemia occurred comes in with acute cholecystitis. Patient started on IV antibiotics, IV fluids. Surgery was consulted. Imaging studies including CT scan and ultrasound showed acute cholecystitis without any biliary dilatation. Patient was by Cardiology for cardiac clearance. Patient also had elevated creatinine level. Nephrology was consulted. Patient started on IV fluids. Patient's kidney function improved and eventually normalized. Patient was taken for laparoscopic cholecystectomy by Dr. Woods. She is found to have gangrenous cholecystitis. She developed sepsis postoperatively. Became hypotensive delirious and had to be reintubated. Patient was kept in the ICU overnight. Pulmonology was consulted. She was able to be extubated. Her hypertension and decreased mental status is likely due to sepsis. Patient is also seen by neurology. CT scan of the head was negative. Patient's mental status improved in the next 24 hr. Patient was then back to her baseline. Patient overall did well during the course of the hospital stay. Patient was weak and worked with physical therapy who recommended long term facility placement. Initially family was okay with placement however subsequently they refused including home health which was also refused and wish to take the patient home. They understand the risks of patient being weak and possibility of falls which may result in fractures brain bleed amongst other issues. They understand and wish to take the patient home due to the current pandemic. Patient will finish off course of oral antibiotics at home. Vital Signs/Physical Exam: Temp Pulse Resp BP Pulse Ox 98 F 72 18 144/66 H 96 08/20/19 08:00 08/20/19 08:35 08/20/19 08:00 08/20/19 08:35 08/20/19 08:00 General: Alert, In no apparent distress, Oriented x2, Other (Elderly female) HEENT: Atraumatic, PERRLA, EOMI Neck: Supple, JVD not distended Respiratory: Clear to auscultation bilaterally, Normal air movement Cardiovascular: Regular rate/rhythm, Normal S1 S2 Gastrointestinal: Normal bowel sounds, Soft and benign, Non-distended, No tenderness, Other (DEE drain in place incision site clean dry intact) Musculoskeletal: No tenderness Integumentary: No rashes Neurological: Normal speech, Normal tone, Normal affect Laboratory Data at Discharge: WBC 7.2 K/uL (4.3-10.9) D 08/20/19 05:30 Hgb 12.1 g/dL (12.0-15.0) 08/20/19 05:30 Hct 36.8 % (36.0-45.0) 08/20/19 05:30 Plt Count 158 K/uL (152-406) 08/20/19 05:30 PT 14.2 SECONDS (9.5-12.5) H 08/15/19 07:55 INR 1.21 08/15/19 07:55 Sodium 146 mmol/L (136-145) H 08/20/19 05:30 Potassium 3.2 mmol/L (3.5-5.1) L 08/20/19 05:30 BUN 7 mg/dL (7-18) 08/20/19 05:30 Creatinine 0.61 mg/dL (0.55-1.3) 08/20/19 05:30 Glucose 92 mg/dL (74-106) 08/20/19 05:30 Phosphorus 2.7 mg/dL (2.5-4.9) 08/20/19 05:30 Magnesium 1.7 mg/dL (1.8-2.4) L 08/20/19 05:30 Total Bilirubin 0.4 mg/dL (0.2-1.0) 08/17/19 04:55 AST 59 U/L (15-37) H 08/17/19 04:55 ALT 42 U/L (12-78) 08/17/19 04:55 Alkaline Phosphatase 104 U/L (45-117) 08/17/19 04:55 Lipase 47 U/L (73-393) L 08/15/19 07:55 Home Medications: Carvedilol [Coreg] 12.5 mg PO BID 08/15/19 Losartan Potassium 100 mg PO DAILY 08/15/19 Nitroglycerin 1 tab SL DAILY PRN 08/15/19 Omeprazole [Prilosec] 40 mg PO DAILY 08/15/19 Pregabalin [Lyrica] 100 mg PO BID 08/15/19 Ranitidine [Zantac*] 150 mg PO BEDTIME 08/15/19 Simvastatin [Zocor] 40 mg PO BEDTIME 08/15/19 Tramadol HCl [Ultram] 50 mg PO Q6H PRN 08/15/19 Amox/Clavulanate [Augmentin 875-125 Tab] 875 mg PO BID #12 tab 08/20/19 New Medications: Amox/Clavulanate [Augmentin 875-125 Tab] 875 mg PO BID #12 tab Patient Discharge Instructions: Follow up with primary care physician in 1-2 weeks. Follow up with surgeon Dr. Woods next week Thursday. DEE drain instructions per surgery. Return to ER for worsening condition. Follow up with security project manager Dr. Hartman in 2 weeks Diet: AHA Activity: Fall precautions Time spent managing pt's care (in minutes): 41
[2019-08-20 12:35] VITALS: BP 153/69; TEMP 98.3
== END 2019-08-20 13:02 | disposition home or self-care (01) | DRG 417 ==
LOC: ER 07:21 → ERHOLD 09:45 → 2ND 11:06 → 3RD-ICU 08-16 18:10 → 2ND 08-17 17:40
PROVIDERS: ADMIT Hospitalist; ATTEND Family Medicine
PROC: 0W9G40Z Drainage of Peritoneal Cavity with Drainage Device, Percutaneous Endoscopic Approach (ICD-10-PCS; 2019-08-16)
PROC: 5A1935Z Respiratory Ventilation, Less than 24 Consecutive Hours (ICD-10-PCS; 2019-08-16)
PROC: 0BH17EZ Insertion of Endotracheal Airway into Trachea, Via Natural or Artificial Opening (ICD-10-PCS; 2019-08-16)
PROC: 0FT44ZZ Resection of Gallbladder, Percutaneous Endoscopic Approach (ICD-10-PCS; principal; 2019-08-16 09:00)
DX: K80.00 Calculus of gallbladder with acute cholecystitis without obstruction (principal); N17.0 Acute kidney failure with tubular necrosis; G92 Toxic encephalopathy; J96.02 Acute respiratory failure with hypercapnia; T81.12XA Postprocedural septic shock, initial encounter; E87.4 Mixed disorder of acid-base balance; E87.0 Hyperosmolality and hypernatremia; T81.44XA Sepsis following a procedure, initial encounter; I10 Essential (primary) hypertension; E78.5 Hyperlipidemia, unspecified; Z79.82 Long term (current) use of aspirin; I25.2 Old myocardial infarction; E87.6 Hypokalemia; R73.9 Hyperglycemia, unspecified; K21.9 Gastro-esophageal reflux disease without esophagitis; E86.1 Hypovolemia; Z79.899 Other long term (current) drug therapy; K82.A1 Gangrene of gallbladder in cholecystitis; I25.10 Atherosclerotic heart disease of native coronary artery without angina pectoris; E66.9 Obesity, unspecified; Z68.31 Body mass index [BMI] 31.0-31.9, adult; Z71.3 Dietary counseling and surveillance; E87.8 Other disorders of electrolyte and fluid balance, not elsewhere classified; E83.42 Hypomagnesemia; E83.39 Other disorders of phosphorus metabolism; D50.0 Iron deficiency anemia secondary to blood loss (chronic)
CPT/HCPCS: 36415; 70450; 71045; 74176; 76705; 80048; 80053; 80069; 80076; 81003; 81015; 82570; 82805; 83036; 83605; 83690; 83735; 83880; 84156; 84300; 84443; 84484; 85025; 85610; 87086; 87088; 88304; 93005; 94002; 96361; 96365; 96375; 97116; 97161; 97530; 99285; J1650; J2250; J2310; J2370; J2405; J2543; J2704; J2710; J3010; J3475; J7030; J7040